=== PATIENT | female | born 1930 | race Caucasian/White ===

== ENCOUNTER 2016-12-16 14:16 | Inpatient (IN) | payer OTHER ==
[~2016-12-16] VITALS: Ht 167.6 cm; Wt 70.7 kg
--- NOTE | 2016-12-16 14:42 | EMERGENCY ROOM VISIT NOTE ---
History Report prepared by Hilario: Erick Jeffrey Under the Supervision of: Dr. Pura Norman M.D. First contact with patient: 14:30 Chief Complaint: CARDIAC ASSESSMENT Stated Complaint: SOB,NAUSEA,FLUID BUILDUP AROUND HEART,DEMETIA Nursing Triage Summary: Pt sons states patient has hx of CHF and has gained 10 pounds over the last week or so. Not eating well, c/o of abdominal pain; she appears SOB. Hx dementia. Pt denies all complaints then turns to sons and states "I don't want to be admitted to the hospital" History of Present Illness The patient is an 86 year old female who presents to the Emergency Room with complaints of constant SOB beginning today. Per family, the patient has appeared to have been experiencing shallow breathing since this morning. They note that they told her that they were going out to lunch but instead brought her to the emergency department. They report that the patient had CHF two years ago and is experiencing similar symptoms again. The patient states that she has a cough but denies any chest pain and vomiting. Source of History: patient, family Onset: today Position: chest Quality: other (shortness of breath) Timing: constant Associated Symptoms: + cough, No chest pain, No vomiting Review of Systems See HPI for pertinent positives & negatives. A total of 10 systems reviewed and were otherwise negative. Past Medical & Surgical Medical Problems: (1) CHF (congestive heart failure) Family History No pertinent family history stated. Social History Smoking Status: Never Smoker Marital Status: Housing Status: lives with family Occupation Status: retired Current/Historical Medications Scheduled Atenolol (Tenormin), 25 MG PO DAILY Dorzolamide Hcl-Timolol Maleat (Cosopt Oph), 1 DROPS OPB BID Enalapril (Vasotec), 20 MG PO DAILY Furosemide (Lasix), 40 MG PO DAILY Latanoprost (Xalatan 0.005% Oph Margaux), 1 DROPS OPB HS Allergies Coded Allergies: No Known Allergies (Unverified , 12/16/16) Physical Exam Vital Signs Date Time Temp Pulse Resp B/P (MAP) Pulse Ox O2 Delivery O2 Flow Rate FiO2 12/16/16 15:27 96 Nasal Cannula 2.0 12/16/16 15:21 83 26 141/96 90 Room Air 12/16/16 15:17 80 12/16/16 14:43 95 Room Air 12/16/16 14:42 76 25 147/106 96 Room Air 12/16/16 14:28 97 Room Air 12/16/16 14:23 36.3 Room Air Physical Exam Vital signs reviewed. General: Well-appearing female, in no significant distress. HEENT: No scleral icterus, PERRLA, neck supple. Atraumatic. Cardiovascular: Regular rate and rhythm, no extra sounds. Pulmonary: Normal work of breathing, crackles to bases left greater than right. Abdomen: Soft, nontender, nondistended, positive bowel sounds. Musculoskeletal: Atraumatic, no peripheral edema. Neurologic: Patient awake alert and oriented x 3, full strength in all 4 extremities. Cranial nerves 2 through 12 grossly intact. Follows commands but is pleasantly confused. Skin: Warm, dry, no rash Medical Decision & Procedures ER Provider Diagnostic Interpretation: Radiology results as stated below per my review and radiologist interpretation: SINGLE VIEW CHEST FINDINGS: An AP, portable, upright chest radiograph is obtained. No prior studies are available for comparison at the time of dictation. The examination is degraded by portable technique and patient rotation. The heart is enlarged and there is atherosclerotic calcification of the thoracic aorta. There is pulmonary vascular congestion and interstitial edema. There are layering pleural effusions with bibasilar consolidation. No pneumothorax is seen. The skeletal structures are osteopenic. The bony thorax is grossly intact. Degenerative change is noted throughout the thoracic spine. IMPRESSION: 1. Cardiomegaly with evidence of congestive failure and interstitial edema. 2. There are layering pleural effusions with bibasilar consolidation. This likely represents atelectasis. Correlate clinically for evidence of superimposed pneumonia. Electronically signed by: Steve Farley M.D. 12/16/2016 2:59 PM Laboratory Results Test 12/16/16 14:45 Prothrombin Time 12.4 SECONDS (9.0-12.0) Prothromb Time International Ratio 1.2 (0.9-1.1) Direct Bilirubin 0.2 mg/dl (0-0.2) Total Creatine Kinase 45 U/L (26-192) Creatine Kinase MB 1.4 ng/ml (0.5-3.6) Creatine Kinase MB Ratio 3.1 (0-3.0) Pro-B-Type Natriuretic Peptide > 51669 pg/ml (0-1800) Procalcitonin 0.35 ng/ml (0-0.5) Laboratory results per my review. Medications Administered Medications (Trade) Dose Ordered Sig/Renae Route Start Time Stop Time Status Last Admin Dose Admin Furosemide (Lasix Inj) 40 mg NOW STAT IV 12/16/16 15:42 12/16/16 15:44 DC 12/16/16 15:49 40 MG ECG Indication: SOB/dyspnea Rate (beats per minute): 84 Rhythm: sinus rhythm Findings: 1st degree AV block, LBBB, PVC, no acute ischemic change, left axis deviation ED Course 1431: Past medical records reviewed. The patient was evaluated in room C12. A complete history and physical examination was performed. 1542: Lasix Inj 40mg IV 1601: I spoke to Dr. Gao - Mary Beavers. The patient will be admitted and evaluated for further treatment. 1603: Upon reevaluation, the patient is resting comfortably. I discussed laboratory and radiographic results with her. She verbalized agreement of the treatment plan. The patient will be evaluated for further management and care. Medical Decision Differential diagnosis: Etiologies such as infections, reactive airway disease, pneumonia, pneumothorax , COPD, CHF, cardiac ischemia, pulmonary embolism, musculoskeletal, gastrointestinal, as well as others were entertained. This pt was evaluated and appeared to be in no distress. IV access was obtained and lab work was drawn. EKG reveals a LBBB with 1st degree AVB. CXR is c/w CHF. Labs reveal a markedly elevated BNP. Pt was medicated with IV lasix 40 mg. She was informed of the findings and not happy about plan for admission. Pt has significant dementia and in the presence of 2 sons and (POA), they have agreed with plan for admission. The hospitalist service was consulted for further management. Medication Reconcilliation Current Medication List: was personally reviewed by me Blood Pressure Screening Patient's blood pressure: Elevated blood pressure referred to hospitalist Consults Time Called: 1600 Consulting Physician: Dr. Gao Returned Call: 1601 I reviewed the patient's case with Nimesh Reyez. She will evaluate the patient for further management. Impression Primary Impression: Congestive heart failure (CHF) Scribe Attestation The scribe's documentation has been prepared under my direction and personally reviewed by me in its entirety. I confirm that the note above accurately reflects all work, treatment, procedures, and medical decision making performed by me. Departure Information Dispostion Being Evaluated By Hospitalist Referrals Henrietta Godwin (PCP) Forms IMPORTANT VISIT INFORMATION Patient Instructions My [facility]
[2016-12-16 14:57] LABS: BASO % 0.3 %; BASO ABS # 0.03 K/uL (0-0.2); COMPLETE YES; HEMATOCRIT 35.6 % (37-47); IG% 0.9 %; LYMPH % 19.4 %; LYMPH ABS # 2.26 K/uL (1.2-3.4); MEAN CELL VOLUME 96.2 fL (80-100); MEAN CORPUSCULAR HEMOGLOBIN 31.1 pg (25-34); MEAN CORPUSCULAR HGB CONC 32.3 g/dl (32-36); MEAN PLATELET VOLUME 10.5 fL (7.4-10.4); NEUT % 71.4 %; PLATELET COUNT 377 K/uL (130-400); WHITE BLOOD COUNT 11.62 K/uL (4.8-10.8)
--- NOTE | 2016-12-16 15:01 | DIAGNOSTIC IMAGING REPORT ---
SINGLE VIEW CHEST CLINICAL HISTORY: CHF. FINDINGS: An AP, portable, upright chest radiograph is obtained. No prior studies are available for comparison at the time of dictation. The examination is degraded by portable technique and patient rotation. The heart is enlarged and there is atherosclerotic calcification of the thoracic aorta. There is pulmonary vascular congestion and interstitial edema. There are layering pleural effusions with bibasilar consolidation. No pneumothorax is seen. The skeletal structures are osteopenic. The bony thorax is grossly intact. Degenerative change is noted throughout the thoracic spine. IMPRESSION: 1. Cardiomegaly with evidence of congestive failure and interstitial edema. 2. There are layering pleural effusions with bibasilar consolidation. This likely represents atelectasis. Correlate clinically for evidence of superimposed pneumonia. Electronically signed by: Steve Farley M.D. 12/16/2016 2:59 PM Dictated Date/Time: 12/16/2016 2:58 PM
[2016-12-16 15:05] LABS: INR 1.2 (0.9-1.1); PROTHROMBIN TIME (PATIENT) 12.4 SECONDS (9.0-12.0)
[2016-12-16 15:23] LABS: ALT/SGPT 62 U/L (12-78); AST/SGOT 42 U/L (15-37); BLOOD UREA NITROGEN 52 mg/dl (7-18); BUN/CREATININE RATIO 27.5 (10-20); CARBON DIOXIDE 21 mmol/L (21-32); CHLORIDE 108 mmol/L (98-107); GLUCOSE 140 mg/dl (70-99); MAGNESIUM 2.4 mg/dl (1.8-2.4); POTASSIUM 4.2 mmol/L (3.5-5.1); SODIUM 141 mmol/L (136-145)
[2016-12-16 15:29] LABS: ALKALINE PHOSPHATASE 109 U/L (45-117); CKMB/CK RATIO 3.1 (0-3.0)
[2016-12-16] MEDS ORDERED: FUROSEMIDE 40 MG/4 ML VIAL IV STA (15:42)
[2016-12-16] MEDS ORDERED: LATA0.5S OPB (16:37)
[2016-12-16] MEDS ORDERED: ENAL10TA88 PO (16:37)
[2016-12-16] MEDS ORDERED: FRS/40 PO (16:37)
[2016-12-16] MEDS ORDERED: DORZ2SOL20 OPB (16:37)
[2016-12-16] MEDS ORDERED: ATEN50TA8 PO (16:37)
--- NOTE | 2016-12-16 17:13 | History and Physical ---
History & Physical Date & Time of Service: Dec 16, 2016 at 16:49 Chief Complaint: Sob,Nausea,Fluid Buildup Around Heart,Demetia Primary Care Physician: Iliana Gomez M.D. History of Present Illness Source: patient, family This is a 86 year old F who follows with a primary care doctor in [place] named Dr. Alexander and on home medications of Lasix 40 mg daily, atenolol 25 mg daily (1/2 tablet of 50 mg) daily and enalapril 20 mg daily for blood pressure , and eye drops of dorzolamide-timolol and latanoprost who as per her family members at bedside ( and 3 sons) that patient has been having shortness of breath since 12/14/16 and for which patient presents to the ER on 12/16/16. On evaluation by the ED, patient had elevated BNP>91440 and CXR findings of pulmonary congestion. The ED physician ordered 40 mg of Lasix IV. Patient has EKG 84 bpm with left axis deviation and left bundle branch block in sinus rhythm with PVCs On exam by hospitalist physician, patient on nasal cannula but does not feel subjective shortness of breath. Patient cooperative on exam. Denies chest pain or palpitations or fevers at home. Denies smoking history or alcohol or recreational drugs or allergies. Family History Stent SON Social History Smoking Status: Never Smoker Marital Status: Occupational Status: retired Multi-Drug Resistant Organisms History of MDRO: No Allergies Coded Allergies: No Known Allergies (Unverified , 12/16/16) Home Medications Scheduled Atenolol (Tenormin), 25 MG PO DAILY Dorzolamide Hcl-Timolol Maleat (Cosopt Oph), 1 DROPS OPB BID Enalapril (Vasotec), 20 MG PO DAILY Furosemide (Lasix), 40 MG PO DAILY Latanoprost (Xalatan 0.005% Oph Margaux), 1 DROPS OPB HS Review of Systems Constitutional: No fever Eyes: No worsening of vision ENT: No nasal symptoms, No sore throat Respiratory: + shortness of breath (patient has shortness of breath as per patient's family), No cough, No sputum, No wheezing Cardiovascular: No chest pain, No edema Abdomen: + nausea, No pain, No vomiting, No diarrhea, No constipation Genitourinary - Female: No dysuria Neurologic: No paralysis, No numbness/tingling Psychiatric: No substance abuse Endocrine: No fatigue Hematologic / Lymphatic: No abnormal bleeding/bruising Integumentary: No rash Physical Exam Vital Signs Date Time Temp Pulse Resp B/P (MAP) Pulse Ox O2 Delivery O2 Flow Rate FiO2 12/16/16 15:27 96 Nasal Cannula 2.0 12/16/16 15:21 83 26 141/96 90 Room Air 12/16/16 15:17 80 12/16/16 14:43 95 Room Air 12/16/16 14:42 76 25 147/106 96 Room Air 12/16/16 14:28 97 Room Air 12/16/16 14:23 36.3 Room Air General Appearance: no apparent distress Head: normocephalic, atraumatic Eyes: normal inspection, PERRL, EOMI, sclerae normal ENT: normal ENT inspection, hearing grossly normal, TMs normal, pharynx normal Neck: no JVD, trachea midline Respiratory/Chest: chest non-tender, + pertinent finding (some tachypnea but breathing is not labored on nasal cannula) Cardiovascular: regular rate, rhythm, no edema, no JVD Abdomen/GI: normal bowel sounds, non tender, soft Back: normal inspection, no muscle spasm Extremities/Musculoskelatal: normal inspection, no calf tenderness, no pedal edema Neurologic/Psych: no motor/sensory deficits, alert, normal mood/affect Skin: normal color, warm/dry Diagnostics Laboratory Results Results Past 24 Hours Test 12/16/16 14:45 12/16/16 16:39 Range/Units White Blood Count 11.62 4.8-10.8 K/uL Red Blood Count 3.70 4.2-5.4 M/uL Hemoglobin 11.5 12.0-16.0 g/dL Hematocrit 35.6 37-47 % Mean Corpuscular Volume 96.2 80-100 fL Mean Corpuscular Hemoglobin 31.1 25-34 pg Mean Corpuscular Hemoglobin Concent 32.3 32-36 g/dl Platelet Count 377 130-400 K/uL Mean Platelet Volume 10.5 7.4-10.4 fL Neutrophils (%) (Auto) 71.4 % Lymphocytes (%) (Auto) 19.4 % Monocytes (%) (Auto) 8.0 % Eosinophils (%) (Auto) 0.0 % Basophils (%) (Auto) 0.3 % Neutrophils # (Auto) 8.30 1.4-6.5 K/uL Lymphocytes # (Auto) 2.26 1.2-3.4 K/uL Monocytes # (Auto) 0.93 0.11-0.59 K/uL Eosinophils # (Auto) 0.00 0-0.5 K/uL Basophils # (Auto) 0.03 0-0.2 K/uL RDW Standard Deviation 49.9 36.4-46.3 fL RDW Coefficient of Variation 14.3 11.5-14.5 % Immature Granulocyte % (Auto) 0.9 % Immature Granulocyte # (Auto) 0.10 0.00-0.02 K/uL Nucleated RBC Absolute Count (auto) 0.04 0-0 K/uL Nucleated Red Blood Cells % 0.3 % Prothrombin Time 12.4 9.0-12.0 SECONDS Prothromb Time International Ratio 1.2 0.9-1.1 Activated Partial Thromboplast Time 25.0 21.0-31.0 SECONDS Partial Thromboplastin Ratio 1.0 Sodium Level 141 136-145 mmol/L Potassium Level 4.2 3.5-5.1 mmol/L Chloride Level 108 98-107 mmol/L Carbon Dioxide Level 21 21-32 mmol/L Anion Gap 12.0 3-11 mmol/L Blood Urea Nitrogen 52 7-18 mg/dl Creatinine 1.90 0.60-1.20 mg/dl Estimated GFR () 27.6 Estimated GFR (Non- 23.8 BUN/Creatinine Ratio 27.5 10-20 Random Glucose 140 70-99 mg/dl Calcium Level 9.0 8.5-10.1 mg/dl Magnesium Level 2.4 1.8-2.4 mg/dl Total Bilirubin 0.4 0.2-1 mg/dl Direct Bilirubin 0.2 0-0.2 mg/dl Aspartate Amino Transf (AST/SGOT) 42 15-37 U/L Alanine Aminotransferase (ALT/SGPT) 62 12-78 U/L Alkaline Phosphatase 109 45-117 U/L Total Creatine Kinase 45 26-192 U/L Creatine Kinase MB 1.4 0.5-3.6 ng/ml Creatine Kinase MB Ratio 3.1 0-3.0 Pro-B-Type Natriuretic Peptide > 08571 0-1800 pg/ml Total Protein 8.0 6.4-8.2 gm/dl Albumin 3.1 3.4-5.0 gm/dl Diagnostic Radiology CXR FINDINGS: An AP, portable, upright chest radiograph is obtained. No prior studies are available for comparison at the time of dictation. The examination is degraded by portable technique and patient rotation. The heart is enlarged and there is atherosclerotic calcification of the thoracic aorta. There is pulmonary vascular congestion and interstitial edema. There are layering pleural effusions with bibasilar consolidation. No pneumothorax is seen. The skeletal structures are osteopenic. The bony thorax is grossly intact. Degenerative change is noted throughout the thoracic spine. IMPRESSION: 1. Cardiomegaly with evidence of congestive failure and interstitial edema. 2. There are layering pleural effusions with bibasilar consolidation. This likely represents atelectasis. EKG EKG 84 bpm with left axis deviation and left bundle branch block in sinus rhythm with PVCs Impression Assessment and Plan This is a 86 year old F who follows with a primary care doctor in [place] named Dr. Alexander and on home medications of Lasix 40 mg daily, atenolol 25 mg daily (1/2 tablet of 50 mg) daily and enalapril 20 mg daily for blood pressure , and eye drops of dorzolamide-timolol and latanoprost who as per her family members at bedside ( and 3 sons) that patient has been having shortness of breath since 12/14/16 and for which patient presents to the ER on 12/16/16. On evaluation by the ED, patient had elevated BNP>69295 and CXR findings of pulmonary congestion. The ED physician ordered 40 mg of Lasix IV. Patient has EKG 84 bpm with left axis deviation and left bundle branch block in sinus rhythm with PVCs CHF -pulmonary congestion on CXR, on exam, and elevated BNP >70688 -ED ordered 40 mg IV of Lasix , will continue Lasix as 40 mg IV BID -no fevers at home or documented in the ED, send procalcitonin to rule out pneumonia -transthoracic echo ordered -no chest pain, add on troponins to evaluate whether risk of myocardial infarction Hypertension medications -continue home dose atenolol -hold enalapril for now because creatinine BUN 52 with creatinine 1.9 Unclear whether this is CHRISTOPHE or CKD -denies dysuria, denies fever -send urinalysis -encourage PO hydration for now because of fluid overload in the lung genao and therefore avoid IV fluids in the setting of CHF continue home eyedrops of dorzolamide-timolol and latanoprost PT/OT ordered DVT ppx: heparin subcutaneous 5000 units q12h Disposition: full admission to telemetry, likely CHF Level of Care Telemetry Resuscitation Status FULL RESUSCITATION VTE Prophylaxis VTE Risk Assessment Done? Y/N: Yes Risk Level: Moderate Given or contraindicated: Unfractionated heparin SQ
[2016-12-16 18:00] VITALS: BP 145/93; PULSE 83; TEMP 36.5; O2SAT 98
[2016-12-16 19:00] VITALS: BP 145/93; PULSE 83; TEMP 36.5; O2SAT 98; Ht 167.6 cm; Wt 70.7 kg
[2016-12-16] MEDS ORDERED: HEPARIN SOD 5000 UNIT/0.5 ML CARP SQ SCH (21:00)
[2016-12-16 21:02] LABS: MANUAL MICROSCOPIC REQUIRED? NO; REVIEW REQ? NO; URINE APPEARANCE CLEAR (CLEAR); URINE BILIRUBIN NEG (NEG); URINE COLOR YELLOW; URINE EPITHELIAL CELL AUTO >30 /lpf (0-5); URINE NITRITE NEG (NEG); URINE SPECIFIC GRAVITY 1.018 (1.000-1.030); UROBILINOGEN NEG (NEG)
[2016-12-16] MEDS ORDERED: ASPIRIN 81 MG ECTAB PO STA (21:59)
[2016-12-16] MEDS ORDERED: HEPARIN IV LOW DOSE NO BOLUS SCH (22:04)
[2016-12-16] MEDS ORDERED: HEPARIN 25,000 UNIT/500ML D5W 500 ML IV PRN (22:15)
[2016-12-16 22:44] LABS: BUN/CREATININE RATIO 31.4 (10-20); CREATININE 1.92 mg/dl (0.60-1.20); MAGNESIUM 2.3 mg/dl (1.8-2.4); POTASSIUM 4.1 mmol/L (3.5-5.1)
[2016-12-16 22:54] LABS: THYROID STIMULATING HORMONE 1.3 uIu/ml (0.300-4.500)
[2016-12-16 23:03] VITALS: BP 150/77; PULSE 83; TEMP 36.2; O2SAT 96
[2016-12-17] VITALS (7 sets, daily range): BP systolic 114–187; BP diastolic 73–121; PULSE 78–112; TEMP 36.3–36.8; O2SAT 90–99
[2016-12-17] MEDS ORDERED: PROCHLORPERAZINE INJ 5 MG in SYRINGE 4 ML IV PRN
[2016-12-17] MEDS ORDERED: METOCLOPRAMIDE HCL INJ 5 MG/ML 2 ML VIAL IV PRN (00:45)
[2016-12-17] MEDS ORDERED: OLANZAPINE 10 MG/2.1 ML SDV IM STA (00:58)
[2016-12-17] MEDS ORDERED: LEVALBUTEROL/IPRATROPIUM NEB INH STA (00:58)
[2016-12-17] MEDS ORDERED: LEVALBUTEROL/IPRATROPIUM NEB INH PRN (01:00)
[2016-12-17] MEDS ORDERED: LEVALBUTEROL 1.25MG/0.5ML NEB INH STA (01:01)
[2016-12-17] MEDS ORDERED: IPRATROPIUM BROMIDE NEB SOLN 0.02% 2.5 ML VIAL INH STA (01:01)
[2016-12-17] MEDS ORDERED: IPRATROPIUM BROMIDE NEB SOLN 0.02% 2.5 ML VIAL INH PRN (01:15)
[2016-12-17] MEDS ORDERED: LEVALBUTEROL 1.25MG/0.5ML NEB INH PRN (01:15)
--- NOTE | 2016-12-17 01:17 | Progress Note ---
Internal Med Progress Note Date of Service: Dec 17, 2016. Provider Documentation: Made aware by RN of episodic bradycardia around 10 PM last night - CR 30s on 2 episodes 5 minutes apart. px nauseous as per RN. Decrease maintenance home beta maryjane dose for now. Will relay to AM provider. Vital Signs: Date Time Temp Pulse Resp B/P (MAP) Pulse Ox O2 Delivery O2 Flow Rate FiO2 12/17/16 07:45 Nasal Cannula 2.0 12/17/16 07:18 36.7 85 18 126/80 (95) 96 12/17/16 05:26 36.3 85 20 114/73 (87) 99 Nasal Cannula 2.0 12/17/16 04:00 Nasal Cannula 2.0 12/17/16 01:19 97 20 95 Room Air 12/17/16 00:21 112 153/99 (117) 12/17/16 00:00 Nasal Cannula 2.0 12/16/16 23:03 36.2 83 18 150/77 (101) 96 Nasal Cannula 2.0 12/16/16 20:00 Nasal Cannula 2.0 12/16/16 19:00 36.5 83 22 145/93 98 Nasal Cannula 2.0 12/16/16 18:00 36.5 83 22 145/93 (110) 98 Nasal Cannula 2.0 12/16/16 17:30 79 21 147/95 97 Nasal Cannula 2.0 12/16/16 16:51 86 26 147/95 96 Nasal Cannula 2.0 12/16/16 15:27 96 Nasal Cannula 2.0 12/16/16 15:21 83 26 141/96 90 Room Air 12/16/16 15:17 80 12/16/16 14:43 95 Room Air 12/16/16 14:42 76 25 147/106 96 Room Air 12/16/16 14:28 97 Room Air 12/16/16 14:23 36.3 Room Air Lab Results: Results Past 24 Hours Test 12/16/16 14:45 12/16/16 19:25 12/16/16 20:43 12/16/16 22:19 Range/Units White Blood Count 11.62 4.8-10.8 K/uL Red Blood Count 3.70 4.2-5.4 M/uL Hemoglobin 11.5 12.0-16.0 g/dL Hematocrit 35.6 37-47 % Mean Corpuscular Volume 96.2 80-100 fL Mean Corpuscular Hemoglobin 31.1 25-34 pg Mean Corpuscular Hemoglobin Concent 32.3 32-36 g/dl Platelet Count 377 130-400 K/uL Mean Platelet Volume 10.5 7.4-10.4 fL Neutrophils (%) (Auto) 71.4 % Lymphocytes (%) (Auto) 19.4 % Monocytes (%) (Auto) 8.0 % Eosinophils (%) (Auto) 0.0 % Basophils (%) (Auto) 0.3 % Neutrophils # (Auto) 8.30 1.4-6.5 K/uL Lymphocytes # (Auto) 2.26 1.2-3.4 K/uL Monocytes # (Auto) 0.93 0.11-0.59 K/uL Eosinophils # (Auto) 0.00 0-0.5 K/uL Basophils # (Auto) 0.03 0-0.2 K/uL RDW Standard Deviation 49.9 36.4-46.3 fL RDW Coefficient of Variation 14.3 11.5-14.5 % Immature Granulocyte % (Auto) 0.9 % Immature Granulocyte # (Auto) 0.10 0.00-0.02 K/uL Nucleated RBC Absolute Count (auto) 0.04 0-0 K/uL Nucleated Red Blood Cells % 0.3 % Prothrombin Time 12.4 9.0-12.0 SECONDS Prothromb Time International Ratio 1.2 0.9-1.1 Activated Partial Thromboplast Time 25.0 21.0-31.0 SECONDS Partial Thromboplastin Ratio 1.0 Sodium Level 141 142 136-145 mmol/L Potassium Level 4.2 4.1 3.5-5.1 mmol/L Chloride Level 108 110 98-107 mmol/L Carbon Dioxide Level 21 21 21-32 mmol/L Anion Gap 12.0 11.0 3-11 mmol/L Blood Urea Nitrogen 52 60 7-18 mg/dl Creatinine 1.90 1.92 0.60-1.20 mg/dl Estimated GFR () 27.6 27.2 Estimated GFR (Non- 23.8 23.5 BUN/Creatinine Ratio 27.5 31.4 10-20 Random Glucose 140 137 70-99 mg/dl Calcium Level 9.0 9.0 8.5-10.1 mg/dl Magnesium Level 2.4 2.3 1.8-2.4 mg/dl Total Bilirubin 0.4 0.2-1 mg/dl Direct Bilirubin 0.2 0-0.2 mg/dl Aspartate Amino Transf (AST/SGOT) 42 15-37 U/L Alanine Aminotransferase (ALT/SGPT) 62 12-78 U/L Alkaline Phosphatase 109 45-117 U/L Total Creatine Kinase 45 26-192 U/L Creatine Kinase MB 1.4 0.5-3.6 ng/ml Creatine Kinase MB Ratio 3.1 0-3.0 Troponin I 0.276 0.308 0-0.045 ng/ml Pro-B-Type Natriuretic Peptide > 28128 0-1800 pg/ml Total Protein 8.0 6.4-8.2 gm/dl Albumin 3.1 3.4-5.0 gm/dl Procalcitonin 0.35 0-0.5 ng/ml Urine Color YELLOW Urine Appearance CLEAR CLEAR Urine pH 5.0 4.5-7.5 Urine Specific [place] 1.018 1.000-1.030 Urine Protein TRACE NEG Urine Glucose (UA) NEG NEG Urine Ketones NEG NEG Urine Occult Blood NEG NEG Urine Nitrite NEG NEG Urine Bilirubin NEG NEG Urine Urobilinogen NEG NEG Urine Leukocyte Esterase SMALL NEG Urine WBC (Auto) 1-5 0-5 /hpf Urine RBC (Auto) 0-4 0-4 /hpf Urine Hyaline Casts (Auto) 1-5 0-5 /lpf Urine Epithelial Cells (Auto) >30 0-5 /lpf Urine Bacteria (Auto) NEG NEG Est Creatinine Clear Calc Drug Dose 22.5 ml/min Lipase 369 73-393 U/L Thyroid Stimulating Hormone (TSH) 1.300 0.300-4.500 uIu/ml Test 12/17/16 03:47 12/17/16 04:40 Range/Units White Blood Count 11.19 4.8-10.8 K/uL Red Blood Count 3.45 4.2-5.4 M/uL Hemoglobin 10.5 12.0-16.0 g/dL Hematocrit 32.9 37-47 % Mean Corpuscular Volume 95.4 80-100 fL Mean Corpuscular Hemoglobin 30.4 25-34 pg Mean Corpuscular Hemoglobin Concent 31.9 32-36 g/dl Platelet Count 311 130-400 K/uL Mean Platelet Volume 10.2 7.4-10.4 fL Neutrophils (%) (Auto) 77.0 % Lymphocytes (%) (Auto) 14.6 % Monocytes (%) (Auto) 7.1 % Eosinophils (%) (Auto) 0.0 % Basophils (%) (Auto) 0.3 % Neutrophils # (Auto) 8.62 1.4-6.5 K/uL Lymphocytes # (Auto) 1.63 1.2-3.4 K/uL Monocytes # (Auto) 0.80 0.11-0.59 K/uL Eosinophils # (Auto) 0.00 0-0.5 K/uL Basophils # (Auto) 0.03 0-0.2 K/uL RDW Standard Deviation 49.8 36.4-46.3 fL RDW Coefficient of Variation 14.6 11.5-14.5 % Immature Granulocyte % (Auto) 1.0 % Immature Granulocyte # (Auto) 0.11 0.00-0.02 K/uL Nucleated RBC Absolute Count (auto) 0.06 0-0 K/uL Nucleated Red Blood Cells % 0.5 % Activated Partial Thromboplast Time 25.7 27.6 21.0-31.0 SECONDS Partial Thromboplastin Ratio 1.0 1.1 Sodium Level 146 136-145 mmol/L Potassium Level 3.7 3.5-5.1 mmol/L Chloride Level 111 98-107 mmol/L Carbon Dioxide Level 23 21-32 mmol/L Anion Gap 12.0 3-11 mmol/L Blood Urea Nitrogen 60 7-18 mg/dl Creatinine 2.09 0.60-1.20 mg/dl Est Creatinine Clear Calc Drug Dose 20.7 ml/min Estimated GFR () 24.6 Estimated GFR (Non- 21.2 BUN/Creatinine Ratio 28.7 10-20 Random Glucose 143 70-99 mg/dl Calcium Level 8.6 8.5-10.1 mg/dl Magnesium Level 2.4 1.8-2.4 mg/dl Total Bilirubin 0.5 0.2-1 mg/dl Aspartate Amino Transf (AST/SGOT) 45 15-37 U/L Alanine Aminotransferase (ALT/SGPT) 61 12-78 U/L Alkaline Phosphatase 105 45-117 U/L Troponin I 0.270 0-0.045 ng/ml Total Protein 7.2 6.4-8.2 gm/dl Albumin 2.9 3.4-5.0 gm/dl Globulin 4.3 2.5-4.0 gm/dl Albumin/Globulin Ratio 0.7 0.9-2 Triglycerides Level 172 0-150 mg/dl Cholesterol Level 157 0-200 mg/dl HDL Cholesterol 36 mg/dl LDL Cholesterol, Calculated 87 mg/dl VLDL Cholesterol, Calculated 34 mg/dl Cholesterol/HDL Ratio 4.4
[2016-12-17 03:58] LABS: BASO % 0.3 %; BASO ABS # 0.03 K/uL (0-0.2); COMPLETE YES; HEMATOCRIT 32.9 % (37-47); LYMPH % 14.6 %; LYMPH ABS # 1.63 K/uL (1.2-3.4); MEAN CELL VOLUME 95.4 fL (80-100); MEAN CORPUSCULAR HEMOGLOBIN 30.4 pg (25-34); MEAN CORPUSCULAR HGB CONC 31.9 g/dl (32-36); MEAN PLATELET VOLUME 10.2 fL (7.4-10.4); MONO % 7.1 %; PLATELET COUNT 311 K/uL (130-400); RED BLOOD COUNT 3.45 M/uL (4.2-5.4); WHITE BLOOD COUNT 11.19 K/uL (4.8-10.8)
[2016-12-17 04:36] LABS: BUN/CREATININE RATIO 28.7 (10-20); CALCIUM 8.6 mg/dl (8.5-10.1); CREATININE 2.09 mg/dl (0.60-1.20); MAGNESIUM 2.4 mg/dl (1.8-2.4); POTASSIUM 3.7 mmol/L (3.5-5.1)
[2016-12-17 04:42] LABS: ALB/GLOB RATIO 0.7 (0.9-2); CHOLESTEROL/HDL RATIO 4.4
[2016-12-17 05:06] LABS: PARTIAL THROMBOPLASTIN RATIO 1.1
[2016-12-17] MEDS ORDERED: HEPARIN IV BOLUS 4,500 UNIT in SYRINGE 0 ML IV ONE (05:30)
--- NOTE | 2016-12-17 06:44 | DIAGNOSTIC IMAGING REPORT ---
CHEST ONE VIEW PORTABLE HISTORY: 86 years-old Female sob acute shortness of breath with congestive heart failure COMPARISON: Chest radiograph 12/16/2016 TECHNIQUE: Portable upright AP view of the chest FINDINGS: Cardiac silhouette is moderately enlarged, unchanged. Atherosclerosis of the aorta. There is no pneumothorax. Pulmonary vascular congestion with background interstitial opacities, small bilateral pleural effusions with bibasilar consolidation appears mildly improved from prior. There is slightly improved aeration of the lung bases. The bones are grossly intact. IMPRESSION: 1. Cardiomegaly with mildly improved pulmonary edema pattern. 2. Mildly improved aeration of the lung bases with persistent bibasilar consolidation suggesting atelectasis or less likely pneumonia. The above report was generated using voice recognition software. It may contain grammatical, syntax or spelling errors. Electronically signed by: Panfilo Jacobson M.D. 12/17/2016 6:42 AM Dictated Date/Time: 12/17/2016 6:40 AM
[2016-12-17] MEDS: LATANOPROST 0.005% OP SOLN 2.5 ML BTL OP SCH (07:56)
[2016-12-17] MEDS: DORZOLAMIDE/TIMOLOL 22.3/6.8MG/ML 10 ML BTL OP SCH (07:56)
--- NOTE | 2016-12-17 08:02 | ECHOCARDIOGRAM REPORT ---
*NOTICE TO RECEIVING CONSTITUTION PARTY AGENCY This information is strictly Confidential and protected under [place] law. [place] law prohibits you from making any further disclosure of this information unless further disclosure is expressly permitted by the written consent of the person to whom it pertains or is authorized by law. A general authorization for the release of medical or other information is not sufficient for this purpose. Hospital accepts no responsibility if the information is made available to any other person, INCLUDING THE PATIENT. Interpretation Summary * Name: SALVADOR VILLALTA Study Date: 12/17/2016 06:19 AM BP: 114/73 mmHg * Patient Location: [facility]\S\[id number]\S\2 HR: 85 * : 1930 (M/d/yyyy) Gender: Female Height: 65 in * Age: 86 yrs Ethnicity: [place] Weight: 164 lb * Ordering Physician: Christopher Goyal * Performed By: Nena Malone RDCS * * Reason For Study: CHF * BSA: 1.8 m2 * -- Conclusions -- * The left ventricle is moderately dilated. * There is severe concentric left ventricular hypertrophy. * Septal motion is consistent with conduction abnormality. * There is severe global hypokinesis of the left ventricle. * There is inferior wall akinesis. * Ejection Fraction = <15%. * The left atrium is mildly dilated. * There is moderate to severe mitral regurgitation. Procedure Details * A complete two-dimensional transthoracic echocardiogram was performed (2D, M-mode, Doppler and color flow Doppler). * The study was technically difficult. * There were technical limitations due to patient being combative and inability to cooperate. Left Ventricle * The left ventricle is moderately dilated. * There is severe concentric left ventricular hypertrophy. * Ejection Fraction = <15%. * Left ventricular systolic function is severely reduced. * Septal motion is consistent with conduction abnormality. * There is severe global hypokinesis of the left ventricle. * There is inferior wall akinesis. Right Ventricle * The right ventricle is normal in size and function. Atria * The left atrium is mildly dilated. * Right atrial size is normal. * No ASD detected; PFO is not assessed. Mitral Valve * The mitral valve lealfets are moderately thickened * There is no mitral valve stenosis. * There is moderate to severe mitral regurgitation. Tricuspid Valve * The tricuspid valve anatomy is normal. * There is no tricuspid stenosis. * There is trace tricuspid regurgitation. Aortic Valve * The aortic valve is trileaflet. * Aortic valve sclerosis moderate, without significant aortic valvular stenosis. * No hemodynamically significant valvular aortic stenosis. * Trace aortic regurgitation. Pulmonic Valve * The pulmonic valve is not well visualized. Great Vessels * The aortic root is normal size. Pericardium/Pleural * There is no pericardial effusion. Great Vessels * The inferior vena cava is mildly dilated. Left Ventricular Diastolic Function * Diastolic dysfunction, Grade III, consistent with marked congestive heart failure. MMode 2D Measurements and Calculations IVSd 1.9 cm IVSs 1.7 cm LVIDd 6.0 cm LVIDs 5.3 cm LVPWd 1.0 cm LVPWs 1.4 cm IVS/LVPW 1.8 FS 10.8 % EDV(Teich) 177.6 ml ESV(Teich) 136.5 ml EF(Teich) 23.1 % EDV(cubed) 212.2 ml ESV(cubed) 150.5 ml EF(cubed) 29.0 % % IVS thick -9.50 % % LVPW thick 30.3 % LV mass(C)d 417.2 grams LV mass(C)dI 229.4 grams/m\S\2 LV mass(C)s 372.3 grams LV mass(C)sI 204.8 grams/m\S\2 SV(Teich) 41.0 ml SI(Teich) 22.6 ml/m\S\2 SV(cubed) 61.6 ml SI(cubed) 33.9 ml/m\S\2 EPSS 2.1 cm ACS 0.45 cm LA dimension 4.6 cm asc Aorta Diam 4.1 cm LVOT diam 1.9 cm LVOT area 3.0 cm\S\2 LVAd ap4 45.3 cm\S\2 LVLd ap4 9.5 cm EDV(MOD-sp4) 179.3 ml EDV(sp4-el) 184.2 ml LVAs ap4 39.4 cm\S\2 LVLs ap4 8.9 cm ESV(MOD-sp4) 144.2 ml ESV(sp4-el) 147.5 ml EF(MOD-sp4) 19.6 % EF(sp4-el) 19.9 % LVAd ap2 48.3 cm\S\2 LVLd ap2 9.6 cm EDV(MOD-sp2) 196.9 ml EDV(sp2-el) 205.2 ml LVAs ap2 41.4 cm\S\2 LVLs ap2 9.8 cm ESV(MOD-sp2) 151.3 ml ESV(sp2-el) 148.6 ml EF(MOD-sp2) 23.1 % EF(sp2-el) 27.6 % LVLd %diff 1.9 % EDV(MOD-bp) 191.6 ml LVLs %diff 8.7 % ESV(MOD-bp) 153.7 ml EF(MOD-bp) 19.8 % SV(MOD-sp4) 35.1 ml SI(MOD-sp4) 19.3 ml/m\S\2 SV(MOD-sp2) 45.6 ml SI(MOD-sp2) 25.1 ml/m\S\2 SV(MOD-bp) 37.9 ml SI(MOD-bp) 20.8 ml/m\S\2 SV(sp4-el) 36.7 ml SI(sp4-el) 20.2 ml/m\S\2 SV(sp2-el) 56.6 ml SI(sp2-el) 31.2 ml/m\S\2 Doppler Measurements and Calculations MV E max yoko 131.6 cm/sec MV dec time 0.13 sec Ao V2 max 113.6 cm/sec Ao max PG 5.2 mmHg Ao max PG (full) 3.6 mmHg DYANA(V,A) 1.6 cm\S\2 DYANA(V,D) 1.6 cm\S\2 AI max yoko 400.1 cm/sec AI max PG 64.0 mmHg AI dec slope 241.9 cm/sec\S\2 AI P1/2t 484.4 msec LV V1 max PG 1.6 mmHg LV V1 max 62.3 cm/sec MR max yoko 406.0 cm/sec MR max PG 66.0 mmHg PA V2 max 79.3 cm/sec PA max PG 2.5 mmHg PI end-d yoko 92.3 cm/sec
[2016-12-17] MEDS: ASPIRIN 81 MG ECTAB PO SCH (08:16)
[2016-12-17] MEDS ORDERED: FUROSEMIDE INJ 40 MG in SYRINGE 0 ML IV SCH (09:00)
[2016-12-17] MEDS ORDERED: NURSING VERBAL MED ORDER ONE (10:15)
[2016-12-17] MEDS ORDERED: POTASSIUM CHLORIDE 10 MEQ TABCR PO ONE (10:25)
[2016-12-17] MEDS ORDERED: FUROSEMIDE INJ 40 MG in SYRINGE 0 ML IV ONE (10:45)
--- NOTE | 2016-12-17 11:05 | CARDIOLOGY CONSULTATION ---
DATE OF CONSULTATION: 12/17/2016 CONSULTATION REQUESTED BY: Dr. Goyal. REASON FOR CONSULTATION: Volume overload. HISTORY OF PRESENT ILLNESS: Mrs. Alexander is a very pleasant yet severely demented 86-year-old woman who presented to [facility] [address] on 12/16/2016 with a report of shortness of breath as per the family. The patient is severely demented and the family actually told her that she was going out to lunch. Upon presentation to the Emergency Room, she was found to be volume overloaded. She was given a dose of IV Lasix and admitted to telemetry. Currently, no family is available at the bedside. I did try to contact her and son both by phone, neither call was picked up. Currently, the patient states that she feels weak, but is unable to provide any further detail. She is unsure why she is here. I did call and speak to her primary care physician, Dr. Iliana Gomez through [facility] and she was able to provide a great deal of insight and the patient's medical history. She states that she does carry a history of severe vascular dementia with short term memory of approximately 30 seconds. She also carries a history of severe cardiomyopathy, EF approximately 20% with severe mitral regurgitation, which the family declined further workup of for several years now. She also carries a history of chronic left bundle branch block. She states that she has chronic complaints of nausea, but usually does not complain of dyspnea. PAST SURGICAL HISTORY: Unknown. MEDICAL ILLNESSES: 1. Severe cardiomyopathy, EF approximately 20%. 2. Severe mitral regurgitation. 3. Severe vascular dementia. 4. Chronic kidney disease. Creatinine ranging between 1.5 and 2.2. 5. Chronic left bundle branch block. FAMILY HISTORY: Noncontributory. SOCIAL HISTORY: Denies any alcohol, tobacco or recreational drug use. She is . She lives at home with her . Again, she has severe dementia. REVIEW OF SYSTEMS: Unobtainable given the patient's mental status. ALLERGIES: No known drug allergies. MEDICATIONS AN OUTPATIENT: 1. Atenolol 25 mg daily. 2. Enalapril 20 mg daily. 3. Lasix 40 mg daily. 4. Eyedrops. PHYSICAL EXAMINATION: VITALS: Temperature 36.7, pulse 85, respiratory rate 12, blood pressure 126/80, and saturating 96% on 2 liters nasal cannula. GENERAL: Awake, alert, and oriented to self only, out of bed and seated in a wheelchair when about to begin physical therapy evaluation. No acute distress. HEENT: Normocephalic and atraumatic. Pupils equal, round, and reactive to light and accommodation. Extraocular muscles intact. Anicteric sclerae. Moist mucous membranes. NECK: No JVD and no bruit. CARDIOVASCULAR: Regular. Positive S4. Normal S1 and S2. No S3. A harsh 4/6 holosystolic ejection murmur greatest at the left sternal border, midclavicular line with radiation to the left axilla. No rubs. PULMONARY: Bibasilar crackles. Otherwise clear. No rhonchi or wheezing. ABDOMEN: Bowel sounds x4. Soft. No rebound, guarding, or tenderness. No organomegaly. EXTREMITIES: No clubbing, cyanosis or edema. +2 pedal pulses bilaterally. SKIN: Warm and dry. TEST RESULTS: A 12-lead EKG performed in the Emergency Department independently reviewed at this time shows sinus rhythm at 84 beats per minute with occasional PVCs and underlying left bundle branch block pattern. Inverted T waves in the lateral leads. No previous studies available for comparison. A 2D echocardiogram performed today was read as mildly dilated LV chamber with severe concentric left ventricular hypertrophy. Septal motion is consistent with conduction abnormality. Severe global hypokinesis of the left ventricular ejection fraction with akinesis of the inferior wall. EF less than 15%. Moderate to severe mitral regurgitation. Mildly dilated left atrium. LABORATORY STUDIES OF SIGNIFICANCE: Sodium 146, BUN 60, and creatinine of 2.1. IMPRESSION: 1. Longstanding cardiomyopathy, unclear etiology. Family deferring ischemic workup. 2. Severe vascular dementia. 3. Chronic renal failure. 4. Chronic left bundle branch block. RECOMMENDATIONS: It was my pleasure to see Mrs. Alexander in consultation today. Given the fact that the patient has severe underlying dementia and a longstanding history of cardiomyopathy, I believe the most prudent course of action at this point will be for diuresis and medical optimization. So given her renal function, I will increase her Lasix to 80 mg b.i.d. and her electrolytes will be followed closely. Her potassium will also be supplemented at this time. Based on her response to diuresis, we will also likely optimize her beta maryjane to evidence based beta maryjane, most likely Toprol-XL. Her enalapril has been held given her renal function and I agree with this and we will see how she responds to treatment.
[2016-12-17 11:45] LABS: BUN/CREATININE RATIO 31.1 (10-20); CALCIUM 8.8 mg/dl (8.5-10.1); CREATININE 2.13 mg/dl (0.60-1.20); POTASSIUM 3.9 mmol/L (3.5-5.1)
[2016-12-17 11:53] LABS: ALB/GLOB RATIO 0.7 (0.9-2)
--- NOTE | 2016-12-17 14:08 | Palliative Care Consultation ---
Consultation Date of Consultation: Dec 17, 2016. Requesting Physician: Dr. Haro Attending Physician: Dr. Goyal Reason for Consultation: Goals of care History of Present Illness This 86 year old female patient with PMH severe CHF, advanced vascular dementia , and others listed below, presented to the hospital yesterday with c/o shortness of breath and at least 10lb weight gain. On evaluation in the ED, patient had elevated BNP >90662, CXR showed pulmonary congestion. The ED physician ordered 40 mg of Lasix IV. EKG showed 84 bpm with left axis deviation and left bundle branch block in sinus rhythm with PVCs per report. Cardiology consulted, echocardiogram performed. On echo, EF <15%, severe global hypokinesis of LV, inferior wall akinesis, moderate-severe mitral regurgitation. Show is now on higher dose of Lasix- 80mg IV BID, was taking 40mg PO at home. She still has SOB even at rest. There has been some discussion of code status and goals of care among family, palliative care consulted to assist and be extra layer of care. I met with the patient and her family ( Ayden, two sons Ayden and Mike, daughter Erin) in room 289-[address] Rock. I did see the patient when she was alone earlier in the day. At that time she was oriented to person, place and somewhat event but has a memory of about 30 seconds. She did however tell me that she wanted to go home and does not want to be in the hospital. During family meeting, we recapped patient's medical problems including her severe CHF and her advanced dementia. Family provided some insight into patient' s life-- she normally is able to walk with walker (limited distance), still goes out and does things with her , attends grandchildren's sporting events, has good quality of life. For the last week prior to arrival she was having increased SOB, weakness, and had weight gain of at least 10lbs when she was weighed by her son. was weighing patient frequently, but forgot for the last month or so. We discussed goals of care and specifically discussed code status. After discussion, family stated that patient should be a DNR/level 5. They know patient wants to be at home, regardless of whether or not rehab is recommended. I talked about hospice-- patient has had it in the past but was discharged due to improvement. Depending on patient's course throughout hospitalization, family may be agreeable to hospice upon discharge. See plan below. Past Medical/Surgical History Medical History: Vascular dementia CHF, severe. EF <15% Valvular dysfunction CKD, baseline creatinine 1.5-2.2 Social History Smoking Status: Never Smoker History of Alcohol Use: No Marital Status: Occupation Status: retired Review of Systems Constitutional: + weakness, + fatigue ENT: No trouble swallowing Respiratory: + shortness of breath, + dyspnea on exertion, No cough Cardiac: + edema, No chest pain Abdomen: No pain, No nausea, No vomiting Female : + problem reported (reports feeling like she has to pee, but has Landa[place] in place) Neurologic: + memory loss (as reported by family and PMH) Psychiatric: No depression symptoms, No anxiety Allergies Coded Allergies: No Known Allergies (Unverified , 12/16/16) Medications Current Inpatient Medications Medications (Trade) Dose Ordered Sig/Renae Route Start Time Stop Time Status Last Admin Dose Admin Dorzolamide/ Timolol (Cosopt Op Soln) 1 drops DAILY OP 12/17/16 09:00 01/16/17 08:59 12/17/16 07:56 1 DROPS Latanoprost (Xalatan Oph Soln) 1 drops QAM OP 12/17/16 09:00 01/16/17 08:59 12/17/16 07:56 1 DROPS Aspirin (Ecotrin Tab) 81 mg QAM PO 12/17/16 09:00 01/16/17 08:59 12/17/16 08:16 81 MG Prochlorperazine Edisylate 5 mg/ Syringe 5 ml @ 5 mls/min Q6H PRN IV 12/17/16 00:00 01/16/17 00:00 12/17/16 00:06 5 MLS/MIN Metoclopramide HCl (Reglan Inj) 10 mg Q6H PRN IV 12/17/16 00:45 01/16/17 00:44 Ipratropium Lee (Atrovent 0.02% 0.5MG/2.5ML Neb) 0.5 mg Q4H PRN INH 12/17/16 01:15 01/16/17 01:14 Levalbuterol (Xopenex 1.25MG/ 0.5ML Neb) 1.25 mg Q4H PRN INH 12/17/16 01:15 01/16/17 01:14 Atenolol (Tenormin Tab) 12.5 mg QAM PO 12/17/16 09:00 01/16/17 08:59 12/17/16 07:56 12.5 MG Furosemide 80 mg/ Syringe 8 ml @ 4 mls/min BID17 IV 12/17/16 17:00 01/16/17 16:59 Potassium Chloride (Klor-Con M10) 40 meq BID17 PO 12/17/16 17:00 01/16/17 16:59 Physical Exam Date Time Temp Pulse Resp B/P (MAP) Pulse Ox O2 Delivery O2 Flow Rate FiO2 12/17/16 12:00 Nasal Cannula 2.0 12/17/16 09:26 86 99 12/17/16 07:45 Nasal Cannula 2.0 12/17/16 07:18 36.7 85 18 126/80 (95) 96 12/17/16 05:26 36.3 85 20 114/73 (87) 99 Nasal Cannula 2.0 12/17/16 04:00 Nasal Cannula 2.0 12/17/16 01:19 97 20 95 Room Air 12/17/16 00:21 112 153/99 (117) 12/17/16 00:00 Nasal Cannula 2.0 12/16/16 23:03 36.2 83 18 150/77 (101) 96 Nasal Cannula 2.0 12/16/16 20:00 Nasal Cannula 2.0 12/16/16 19:00 36.5 83 22 145/93 98 Nasal Cannula 2.0 12/16/16 18:00 36.5 83 22 145/93 (110) 98 Nasal Cannula 2.0 12/16/16 17:30 79 21 147/95 97 Nasal Cannula 2.0 12/16/16 16:51 86 26 147/95 96 Nasal Cannula 2.0 12/16/16 15:27 96 Nasal Cannula 2.0 12/16/16 15:21 83 26 141/96 90 Room Air 12/16/16 15:17 80 12/16/16 14:43 95 Room Air 12/16/16 14:42 76 25 147/106 96 Room Air 12/16/16 14:28 97 Room Air 11/5/17 14:23 36.3 Room Air General Appearance: no apparent distress ENT: hearing grossly normal Neck: supple, no JVD Respiratory: no respiratory distress, + accessory muscle use, + crackles (few fine in bilateral bases), + pertinent finding (does appear mildly SOB just at rest) Cardiovascular: regular rate, rhythm, + systolic murmur, + normal peripheral pulses, + pertinent finding (BLE edema) Abdomen: normal bowel sounds, non tender, soft Neurologic/Psychiatric: alert, normal mood/affect, + pertinent finding ( forgetful, short-term memory of about 30 seconds) Skin: normal color Laboratory Results Last 24 Hours Test 12/16/16 14:45 12/16/16 19:25 12/16/16 20:43 12/16/16 22:19 White Blood Count 11.62 K/uL Red Blood Count 3.70 M/uL Hemoglobin 11.5 g/dL Hematocrit 35.6 % Mean Corpuscular Volume 96.2 fL Mean Corpuscular Hemoglobin 31.1 pg Mean Corpuscular Hemoglobin Concent 32.3 g/dl Platelet Count 377 K/uL Mean Platelet Volume 10.5 fL Neutrophils (%) (Auto) 71.4 % Lymphocytes (%) (Auto) 19.4 % Monocytes (%) (Auto) 8.0 % Eosinophils (%) (Auto) 0.0 % Basophils (%) (Auto) 0.3 % Neutrophils # (Auto) 8.30 K/uL Lymphocytes # (Auto) 2.26 K/uL Monocytes # (Auto) 0.93 K/uL Eosinophils # (Auto) 0.00 K/uL Basophils # (Auto) 0.03 K/uL RDW Standard Deviation 49.9 fL RDW Coefficient of Variation 14.3 % Immature Granulocyte % (Auto) 0.9 % Immature Granulocyte # (Auto) 0.10 K/uL Nucleated RBC Absolute Count (auto) 0.04 K/uL Nucleated Red Blood Cells % 0.3 % Prothrombin Time 12.4 SECONDS Prothromb Time International Ratio 1.2 Activated Partial Thromboplast Time 25.0 SECONDS Partial Thromboplastin Ratio 1.0 Sodium Level 141 mmol/L 142 mmol/L Potassium Level 4.2 mmol/L 4.1 mmol/L Chloride Level 108 mmol/L 110 mmol/L Carbon Dioxide Level 21 mmol/L 21 mmol/L Anion Gap 12.0 mmol/L 11.0 mmol/L Blood Urea Nitrogen 52 mg/dl 60 mg/dl Creatinine 1.90 mg/dl 1.92 mg/dl Estimated GFR () 27.6 27.2 Estimated GFR (Non- 23.8 23.5 BUN/Creatinine Ratio 27.5 31.4 Random Glucose 140 mg/dl 137 mg/dl Calcium Level 9.0 mg/dl 9.0 mg/dl Magnesium Level 2.4 mg/dl 2.3 mg/dl Total Bilirubin 0.4 mg/dl Direct Bilirubin 0.2 mg/dl Aspartate Amino Transf (AST/SGOT) 42 U/L Alanine Aminotransferase (ALT/SGPT) 62 U/L Alkaline Phosphatase 109 U/L Total Creatine Kinase 45 U/L Creatine Kinase MB 1.4 ng/ml Creatine Kinase MB Ratio 3.1 Troponin I 0.276 ng/ml 0.308 ng/ml Pro-B-Type Natriuretic Peptide > 51132 pg/ml Total Protein 8.0 gm/dl Albumin 3.1 gm/dl Procalcitonin 0.35 ng/ml Urine Color YELLOW Urine Appearance CLEAR Urine pH 5.0 Urine Specific Warren 1.018 Urine Protein TRACE Urine Glucose (UA) NEG Urine Ketones NEG Urine Occult Blood NEG Urine Nitrite NEG Urine Bilirubin NEG Urine Urobilinogen NEG Urine Leukocyte Esterase SMALL Urine WBC (Auto) 1-5 /hpf Urine RBC (Auto) 0-4 /hpf Urine Hyaline Casts (Auto) 1-5 /lpf Urine Epithelial Cells (Auto) >30 /lpf Urine Bacteria (Auto) NEG Est Creatinine Clear Calc Drug Dose 22.5 ml/min Lipase 369 U/L Thyroid Stimulating Hormone (TSH) 1.300 uIu/ml Test 12/17/16 03:47 12/17/16 04:40 12/17/16 11:12 White Blood Count 11.19 K/uL Red Blood Count 3.45 M/uL Hemoglobin 10.5 g/dL Hematocrit 32.9 % Mean Corpuscular Volume 95.4 fL Mean Corpuscular Hemoglobin 30.4 pg Mean Corpuscular Hemoglobin Concent 31.9 g/dl Platelet Count 311 K/uL Mean Platelet Volume 10.2 fL Neutrophils (%) (Auto) 77.0 % Lymphocytes (%) (Auto) 14.6 % Monocytes (%) (Auto) 7.1 % Eosinophils (%) (Auto) 0.0 % Basophils (%) (Auto) 0.3 % Neutrophils # (Auto) 8.62 K/uL Lymphocytes # (Auto) 1.63 K/uL Monocytes # (Auto) 0.80 K/uL Eosinophils # (Auto) 0.00 K/uL Basophils # (Auto) 0.03 K/uL RDW Standard Deviation 49.8 fL RDW Coefficient of Variation 14.6 % Immature Granulocyte % (Auto) 1.0 % Immature Granulocyte # (Auto) 0.11 K/uL Nucleated RBC Absolute Count (auto) 0.06 K/uL Nucleated Red Blood Cells % 0.5 % Activated Partial Thromboplast Time 25.7 SECONDS 27.6 SECONDS Partial Thromboplastin Ratio 1.0 1.1 Sodium Level 146 mmol/L 145 mmol/L Potassium Level 3.7 mmol/L 3.9 mmol/L Chloride Level 111 mmol/L 111 mmol/L Carbon Dioxide Level 23 mmol/L 23 mmol/L Anion Gap 12.0 mmol/L 10.0 mmol/L Blood Urea Nitrogen 60 mg/dl 66 mg/dl Creatinine 2.09 mg/dl 2.13 mg/dl Est Creatinine Clear Calc Drug Dose 20.7 ml/min 20.3 ml/min Estimated GFR () 24.6 24.0 Estimated GFR (Non- 21.2 20.7 BUN/Creatinine Ratio 28.7 31.1 Random Glucose 143 mg/dl 144 mg/dl Calcium Level 8.6 mg/dl 8.8 mg/dl Magnesium Level 2.4 mg/dl Total Bilirubin 0.5 mg/dl 0.4 mg/dl Aspartate Amino Transf (AST/SGOT) 45 U/L 37 U/L Alanine Aminotransferase (ALT/SGPT) 61 U/L 58 U/L Alkaline Phosphatase 105 U/L 112 U/L Troponin I 0.270 ng/ml 0.401 ng/ml Total Protein 7.2 gm/dl 7.5 gm/dl Albumin 2.9 gm/dl 3.1 gm/dl Globulin 4.3 gm/dl 4.4 gm/dl Albumin/Globulin Ratio 0.7 0.7 Triglycerides Level 172 mg/dl Cholesterol Level 157 mg/dl HDL Cholesterol 36 mg/dl LDL Cholesterol, Calculated 87 mg/dl VLDL Cholesterol, Calculated 34 mg/dl Cholesterol/HDL Ratio 4.4 Assessment & Plan Palliative Performance Scale: 40 % Problem list: SOB/PRIEST CHF exacerbation, EF <15% on echocardiogram, moderate to severe mitral regurg, severe global hypokinesis of LV, severe concentric LVH, among other findings. Elevated troponin Alzheimer's, advanced. Has about 30 second short-term memory. Hx CKD, creatinine currently 2.13. According to record, baseline is about 1.5- 2.2. Goals of care (Z51.5) Palliative care recs: discussed with patient, patient's family (, two sons, daughter), Dr. Rock, and Dr. Goyal. -After lengthy discussion, family members present were all in agreement that patient should be a DO NOT RESUSCITATE. I explained this at length. Family seemed to be under the impression that DNR meant "do not treat." I went over extensively that "do not resuscitate" means that if the patient's heart stops or she stops breathing, we will not do any resuscitative efforts including chest compressions, intubation, shocking, and would allow natural . All family said that they would not want to put the patient through any harmful procedures. -We discussed the severity of patient's heart condition stacked on top of her advanced dementia, kidney disease, and advanced age. They understand that the goal of therapy at this point is comfort and trying to keep symptoms (SOB) at bay, but we cannot fix the underlying problem. -Living will states that in end-stage medical condition or permanent unconsciousness, patient does not want any life-prolonging measures. Family is all aware of this. -For now, family still wants to continue all current medical management while she is in hospital. Including diuresis, medication changes, lab work, etc. They do not want to transition to "comfort measures only" at this time. -We did discuss intermediate goals when patient leaves hospital. Patient expressed to me, and so did the family, that she would most certainly want to go home and would not want to go to SNF for rehab. -We discussed reinstating hospice care when patient goes home, as hospice would keep her comfortable and out of the hospital. The family is open to that idea and I will continue to discuss this with them throughout hospitalization. Of note, the patient had hospice in the past and family understands their purpose. -Further goals of care and discharge planning to be determined depending on patient's course. I will be more than happy to continue to follow this nice patient and her family. Thank you kindly for this consult and allowing me to participate in patient's care.
--- NOTE | 2016-12-17 15:05 | Progress Note ---
Internal Med Progress Note Date of Service: Dec 17, 2016. Provider Documentation: SUBJECTIVE: patient at bedside cooperative on exam. denies pain of chest or abdomen. tachypnea on nasal cannula. attending hospitalist physician also discussing with patient, her , her 3 sons and 1 daughter about health care course to date OBJECTIVE: Exam: General- no acute distress Eyes- EOMI ENT- dry mucous membranes as patient has been breathing on nasal cannula with mouth open Neck-no visible JVD, trachea midline Lungs-fair air entry, crackles in lung genao, no wheezing Heart-regular rate Abdomen- soft, nontender, + bowel sounds Extremities- no edema of lower extremities Neuro-awake, verbal, speaks in full sentences, cooperative on exam, unclear whether she understands the complexity of her health situation ASSESSMENT & PLAN: This is a 86 year old F who follows with a primary care doctor in [place] named Dr. Alexander and on home medications of Lasix 40 mg daily, atenolol 25 mg daily (1/2 tablet of 50 mg) daily and enalapril 20 mg daily for blood pressure , and eye drops of dorzolamide-timolol and latanoprost who as per her family members at bedside ( and 3 sons) that patient has been having shortness of breath since 12/14/16 and for which patient presents to the ER on 12/16/16. On evaluation by the ED, patient had elevated BNP>[id number] and CXR findings of pulmonary congestion. The ED physician ordered 40 mg of Lasix IV. Patient has EKG 84 bpm with left axis deviation and left bundle branch block in sinus rhythm with PVCs CHF with elevated troponins and acute on chronic renal failure Echo on 12/17/16 The left ventricle is moderately dilated. There is severe concentric left ventricular hypertrophy. Septal motion is consistent with conduction abnormality. There is severe global hypokinesis of the left ventricle. There is inferior wall akinesis. Ejection Fraction = <15%. The left atrium is mildly dilated. There is moderate to severe mitral regurgitation. Cardiology evaluation and recommendations: "Given the fact that the patient has severe underlying dementia and a longstanding history of cardiomyopathy, I believe the most prudent course of action at this point will be for diuresis and medical optimization. So given her renal function, I will increase her Lasix to 80 mg b.i.d. and her electrolytes will be followed closely. Her potassium will also be supplemented at this time. Based on her response to diuresis, we will also likely optimize her beta maryjane to evidence based beta maryjane, most likely Toprol-XL. Her enalapril has been held given her renal function and I agree with this and we will see how she responds to treatment." acute on chronic renal failure -likely will be exacerbated by increased diuretics this is needed to remove pulmonary edema from CHF DVT PROPHYLAXIS was on heparin drip between 12/16/16 to 12/27/16. Heparin drip discontinued on 10 :15 AM 12/27/16 at the request of cardiology Dr. Haro. Subsequent lab draw on 11:12 AM with resulting troponin still elevated 0.401. Have discussed with Dr. Haro in regards to troponemia and is likely due to CHF and renal disease and plan is to hold off heparin drip. Will switch to heparin subcutaneous 5000 units subq q12 hours for DVT prophylaxis continue home eyedrops of dorzolamide-timolol and latanoprost PT/OT ordered DISPOSITION Patient is full code on this admission from 12/16/16 and continues to be full code in an emergency if the patient has sudden cardiac failure or respiratory failure Patient's family on 12/17/16 brings Living Will which states patient's wishes as "IF (A) I am in state of permanent unconsciousness (such as a coma or persistent vegetative condition), or (B) I suffer from a terminal illness or trauma (such as incurable cancer), or (C) I suffer from brain damage or brain disease (such as advanced Alzheimer's) which has rendered me unable to recognize immediate family and close friends and to communicate intelligibly, and if in the opinion of my attending physician, as confirmed by the opinion of a second physician, such is irreversible with no realistic hope of significant recovery then except for measures to keep me comfortable and to relieve pain, I direct that I be allowed to a natural ..." Full code status reaffirmed in emergency situations after review of this documentation on 12/17/[address] Haro have requested palliative care consult for the patient Vital Signs: Date Time Temp Pulse Resp B/P (MAP) Pulse Ox O2 Delivery O2 Flow Rate FiO2 12/17/16 14:59 36.8 78 18 128/79 (95) 99 2.0 12/17/16 12:00 Nasal Cannula 2.0 12/17/16 09:26 86 99 12/17/16 07:45 Nasal Cannula 2.0 12/17/16 07:18 36.7 85 18 126/80 (95) 96 12/17/16 05:26 36.3 85 20 114/73 (87) 99 Nasal Cannula 2.0 12/17/16 04:00 Nasal Cannula 2.0 12/17/16 01:19 97 20 95 Room Air 12/17/16 00:21 112 153/99 (117) 12/17/16 00:00 Nasal Cannula 2.0 12/16/16 23:03 36.2 83 18 150/77 (101) 96 Nasal Cannula 2.0 12/16/16 20:00 Nasal Cannula 2.0 12/16/16 19:00 36.5 83 22 145/93 98 Nasal Cannula 2.0 12/16/16 18:00 36.5 83 22 145/93 (110) 98 Nasal Cannula 2.0 12/16/16 17:30 79 21 147/95 97 Nasal Cannula 2.0 12/16/16 16:51 86 26 147/95 96 Nasal Cannula 2.0 12/16/16 15:27 96 Nasal Cannula 2.0 12/16/16 15:21 83 26 141/96 90 Room Air Lab Results: Results Past 24 Hours Test 12/16/16 19:25 12/16/16 20:43 12/16/16 22:19 12/17/16 03:47 Range/Units Urine Color YELLOW Urine Appearance CLEAR CLEAR Urine pH 5.0 4.5-7.5 Urine Specific Parsons 1.018 1.000-1.030 Urine Protein TRACE NEG Urine Glucose (UA) NEG NEG Urine Ketones NEG NEG Urine Occult Blood NEG NEG Urine Nitrite NEG NEG Urine Bilirubin NEG NEG Urine Urobilinogen NEG NEG Urine Leukocyte Esterase SMALL NEG Urine WBC (Auto) 1-5 0-5 /hpf Urine RBC (Auto) 0-4 0-4 /hpf Urine Hyaline Casts (Auto) 1-5 0-5 /lpf Urine Epithelial Cells (Auto) >30 0-5 /lpf Urine Bacteria (Auto) NEG NEG Troponin I 0.308 0.270 0-0.045 ng/ml Sodium Level 142 146 136-145 mmol/L Potassium Level 4.1 3.7 3.5-5.1 mmol/L Chloride Level 110 111 98-107 mmol/L Carbon Dioxide Level 21 23 21-32 mmol/L Anion Gap 11.0 12.0 3-11 mmol/L Blood Urea Nitrogen 60 60 7-18 mg/dl Creatinine 1.92 2.09 0.60-1.20 mg/dl Est Creatinine Clear Calc Drug Dose 22.5 20.7 ml/min Estimated GFR () 27.2 24.6 Estimated GFR (Non- 23.5 21.2 BUN/Creatinine Ratio 31.4 28.7 10-20 Random Glucose 137 143 70-99 mg/dl Calcium Level 9.0 8.6 8.5-10.1 mg/dl Magnesium Level 2.3 2.4 1.8-2.4 mg/dl Lipase 369 73-393 U/L Thyroid Stimulating Hormone (TSH) 1.300 0.300-4.500 uIu/ml White Blood Count 11.19 4.8-10.8 K/uL Red Blood Count 3.45 4.2-5.4 M/uL Hemoglobin 10.5 12.0-16.0 g/dL Hematocrit 32.9 37-47 % Mean Corpuscular Volume 95.4 80-100 fL Mean Corpuscular Hemoglobin 30.4 25-34 pg Mean Corpuscular Hemoglobin Concent 31.9 32-36 g/dl Platelet Count 311 130-400 K/uL Mean Platelet Volume 10.2 7.4-10.4 fL Neutrophils (%) (Auto) 77.0 % Lymphocytes (%) (Auto) 14.6 % Monocytes (%) (Auto) 7.1 % Eosinophils (%) (Auto) 0.0 % Basophils (%) (Auto) 0.3 % Neutrophils # (Auto) 8.62 1.4-6.5 K/uL Lymphocytes # (Auto) 1.63 1.2-3.4 K/uL Monocytes # (Auto) 0.80 0.11-0.59 K/uL Eosinophils # (Auto) 0.00 0-0.5 K/uL Basophils # (Auto) 0.03 0-0.2 K/uL RDW Standard Deviation 49.8 36.4-46.3 fL RDW Coefficient of Variation 14.6 11.5-14.5 % Immature Granulocyte % (Auto) 1.0 % Immature Granulocyte # (Auto) 0.11 0.00-0.02 K/uL Nucleated RBC Absolute Count (auto) 0.06 0-0 K/uL Nucleated Red Blood Cells % 0.5 % Activated Partial Thromboplast Time 25.7 21.0-31.0 SECONDS Partial Thromboplastin Ratio 1.0 Total Bilirubin 0.5 0.2-1 mg/dl Aspartate Amino Transf (AST/SGOT) 45 15-37 U/L Alanine Aminotransferase (ALT/SGPT) 61 12-78 U/L Alkaline Phosphatase 105 45-117 U/L Total Protein 7.2 6.4-8.2 gm/dl Albumin 2.9 3.4-5.0 gm/dl Globulin 4.3 2.5-4.0 gm/dl Albumin/Globulin Ratio 0.7 0.9-2 Triglycerides Level 172 0-150 mg/dl Cholesterol Level 157 0-200 mg/dl HDL Cholesterol 36 mg/dl LDL Cholesterol, Calculated 87 mg/dl VLDL Cholesterol, Calculated 34 mg/dl Cholesterol/HDL Ratio 4.4 Test 12/17/16 04:40 12/17/16 11:12 Range/Units Activated Partial Thromboplast Time 27.6 21.0-31.0 SECONDS Partial Thromboplastin Ratio 1.1 Sodium Level 145 136-145 mmol/L Potassium Level 3.9 3.5-5.1 mmol/L Chloride Level 111 98-107 mmol/L Carbon Dioxide Level 23 21-32 mmol/L Anion Gap 10.0 3-11 mmol/L Blood Urea Nitrogen 66 7-18 mg/dl Creatinine 2.13 0.60-1.20 mg/dl Est Creatinine Clear Calc Drug Dose 20.3 ml/min Estimated GFR () 24.0 Estimated GFR (Non- 20.7 BUN/Creatinine Ratio 31.1 10-20 Random Glucose 144 70-99 mg/dl Calcium Level 8.8 8.5-10.1 mg/dl Total Bilirubin 0.4 0.2-1 mg/dl Aspartate Amino Transf (AST/SGOT) 37 15-37 U/L Alanine Aminotransferase (ALT/SGPT) 58 12-78 U/L Alkaline Phosphatase 112 45-117 U/L Troponin I 0.401 0-0.045 ng/ml Total Protein 7.5 6.4-8.2 gm/dl Albumin 3.1 3.4-5.0 gm/dl Globulin 4.4 2.5-4.0 gm/dl Albumin/Globulin Ratio 0.7 0.9-2
[2016-12-17] MEDS: FUROSEMIDE INJ 80 MG in SYRINGE 0 ML IV SCH (17:52)
[2016-12-17] MEDS: POTASSIUM CHLORIDE 10 MEQ TABCR PO SCH (17:53)
[2016-12-17] MEDS: HEPARIN SOD 5000 UNIT/0.5 ML CARP SQ SCH (21:24)
[2016-12-18] VITALS (9 sets, daily range): BP systolic 120–150; BP diastolic 67–93; PULSE 59–75; TEMP 36.3–37.2; O2SAT 91–99
[2016-12-18 06:10] LABS: HEMATOCRIT 35.6 % (37-47); MEAN CORPUSCULAR HEMOGLOBIN 31.6 pg (25-34); MEAN CORPUSCULAR HGB CONC 32.6 g/dl (32-36); MEAN PLATELET VOLUME 10.8 fL (7.4-10.4); PLATELET COUNT 362 K/uL (130-400); RED BLOOD COUNT 3.67 M/uL (4.2-5.4); WHITE BLOOD COUNT 13.55 K/uL (4.8-10.8)
[2016-12-18 06:45] LABS: CREATININE 2.34 mg/dl (0.60-1.20)
[2016-12-18 06:46] LABS: BUN/CREATININE RATIO 33.9 (10-20); CALCIUM 8.9 mg/dl (8.5-10.1); MAGNESIUM 2.4 mg/dl (1.8-2.4); POTASSIUM 3.8 mmol/L (3.5-5.1)
[2016-12-18 06:48] LABS: ALB/GLOB RATIO 0.7 (0.9-2)
--- NOTE | 2016-12-18 07:20 | DIAGNOSTIC IMAGING REPORT ---
SINGLE VIEW CHEST CLINICAL HISTORY: Follow-up CHF. FINDINGS: An AP, portable, upright chest radiograph is compared to study dated 12/17/2016. The examination is degraded by portable technique and patient rotation. The heart is enlarged and there is atherosclerotic calcification of the thoracic aorta. There is pulmonary vascular congestion and interstitial edema. There are layering pleural effusions with bibasilar consolidation. No pneumothorax is seen. The skeletal structures are osteopenic. The bony thorax is grossly intact. Degenerative change is noted throughout the thoracic spine. IMPRESSION: 1. Cardiomegaly with evidence of congestive failure and interstitial edema. This has not significantly changed from yesterday. 2. There are layering pleural effusions with bibasilar consolidation, likely representing atelectasis. Correlate clinically for evidence of superimposed pneumonia. Electronically signed by: Steve Farley M.D. 12/18/2016 7:19 AM Dictated Date/Time: 12/18/2016 7:18 AM
[2016-12-18] MEDS: POTASSIUM CHLORIDE 10 MEQ TABCR PO SCH ×2 (08:24→17:09)
[2016-12-18] MEDS: ASPIRIN 81 MG ECTAB PO SCH (08:24)
[2016-12-18] MEDS: FUROSEMIDE INJ 80 MG in SYRINGE 0 ML IV SCH ×2 (08:24→17:06)
[2016-12-18] MEDS: LATANOPROST 0.005% OP SOLN 2.5 ML BTL OP SCH (08:24)
[2016-12-18] MEDS: DORZOLAMIDE/TIMOLOL 22.3/6.8MG/ML 10 ML BTL OP SCH (08:24)
[2016-12-18] MEDS: HEPARIN SOD 5000 UNIT/0.5 ML CARP SQ SCH ×2 (08:28→21:14)
--- NOTE | 2016-12-18 09:03 | Cardiology Follow-Up ---
Subjective Subjective Date of Service: Dec 18, 2016. Pt evaluation today including: conversation w/ patient, physical exam, chart review, lab review, review of studies, review of inpatient medication list Additional Details: Pt seen and examined, remains significantly confused but at baseline. No complaints overnight. Specifically denies cp, sob, palpitations, lightheadedness or dizziness. Tele reviewed: sinus rhythm with a 7 beat run of NSVT this AM. Problem List Medical Problems: (1) Congestive heart failure (CHF) Status: Acute Review of Systems Constitutional: + weakness, + fatigue ENT: No trouble swallowing Respiratory: + shortness of breath, + dyspnea on exertion, No cough Cardiac: + edema, No chest pain Abdomen: No pain, No nausea, No vomiting Female : + problem reported (reports feeling like she has to pee, but has Lemus in place) Neurologic: + memory loss (as reported by family and PMH) Psychiatric: No depression symptoms, No anxiety Objective Vital Signs Last Vital Signs Documentation Date Time Temp Pulse Resp B/P (MAP) Pulse Ox O2 Delivery O2 Flow Rate FiO2 12/18/16 07:32 36.7 71 20 132/79 (96) 97 2.0 12/18/16 04:00 Nasal Cannula Physical Exam: General Appearance: WD/WN, no apparent distress Eyes: bilateral eyes normal inspection, bilateral eyes PERRL, bilateral eyes EOMI ENT: normal ENT inspection, hearing grossly normal, pharynx normal Neck: supple, no adenopathy, thyroid normal, no JVD, no carotid bruits, trachea midline Respiratory/Chest: chest non-tender, no respiratory distress, + crackles (few fine in bilateral bases) Cardiovascular: regular rate, rhythm, no JVD, + systolic murmur (4/6 holosystolic ) Abdomen: normal bowel sounds, non tender, soft, no organomegaly, no pulsatile mass Extremities: normal inspection, no calf tenderness, + pedal edema (trace b/l LE edema) Neurologic/Psychiatric: 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 acute decompensated systolic heart failure diuresing well I/O's more accurate now with lemus will cont with current dose of lasix follow lytes and replete as necessary appreciate palliative care contribution 2. acute on chronic renal failure baseline creat reportedly 1.5-2.2 will follow I do not see a role for nephrology at this point family aware of situation and risk of permanent renal failure remain of CON avoid NSAIDS 3. NSVT will change atenolol to toprol XL for greater beta blockade also an EBB 4. Moderate to severe mitral regurgitation stable cont to monitor on tele
--- NOTE | 2016-12-18 16:34 | Palliative Care Progress Note ---
Palliative Care Progress Note Date of Service Dec 18, 2016. Subjective Pt evaluation today including: conversation w/ patient, conversation w/ family (3 sons, 1 daughter, ), physical exam, chart review, lab review, conversation w/ art consultant, review of inpatient medication list Pain: 0/10 PO Intake: tolerating diet Voiding: lemus catheter in place -Patient looks slightly better today as far as her ease of breathing. She remains at her baseline mental status of confusion/short-term memory loss. -Patient states she feels a little better but is still very tired. Family all agrees that she looks better from a respiratory standpoint but remains sleepy. -Discussed with family about patient's plan of care. Review of Systems Constitutional: + weakness, + fatigue ENT: No trouble swallowing Respiratory: + cough, + dyspnea on exertion, No wheezing Cardiac: No chest pain, No edema Abdomen: No pain, No nausea, No vomiting Neurologic: + memory loss Psychiatric: No depression symptoms, No anxiety Objective Vital Signs Date Time Temp Pulse Resp B/P (MAP) Pulse Ox O2 Delivery O2 Flow Rate FiO2 12/18/16 16:16 95 Nasal Cannula 2.0 12/18/16 15:27 36.4 71 20 120/78 (92) 95 Room Air 12/18/16 12:00 Nasal Cannula 2.0 12/18/16 11:45 36.8 59 18 136/84 (101) 96 Room Air 12/18/16 08:00 Nasal Cannula 2.0 12/18/16 07:32 36.7 71 20 132/79 (96) 97 2.0 12/18/16 04:00 Nasal Cannula 2.0 12/18/16 03:58 37.2 65 18 137/86 (103) 91 Nasal Cannula 2.0 12/18/16 00:07 36.6 71 18 120/81 (94) 95 Nasal Cannula 2.0 12/18/16 00:00 Nasal Cannula 2.0 12/17/16 20:37 36.8 90 22 127/78 (94) 90 Nasal Cannula 2.5 12/17/16 20:00 Nasal Cannula 2.0 Physical Exam General Appearance: no apparent distress ENT: hearing grossly normal Neck: supple, no JVD Respiratory/Chest: no respiratory distress, no accessory muscle use, + crackles (bilateral bases, mildly improved) Cardiovascular: regular rate, rhythm, no edema, + normal peripheral pulses Abdomen: normal bowel sounds, non tender, soft Neurologic/Psychiatric: alert, normal mood/affect, + disoriented Skin: normal color Laboratory Results Last 24 Hours Test 12/18/16 05:40 White Blood Count 13.55 K/uL Red Blood Count 3.67 M/uL Hemoglobin 11.6 g/dL Hematocrit 35.6 % Mean Corpuscular Volume 97.0 fL Mean Corpuscular Hemoglobin 31.6 pg Mean Corpuscular Hemoglobin Concent 32.6 g/dl RDW Standard Deviation 51.0 fL RDW Coefficient of Variation 14.8 % Platelet Count 362 K/uL Mean Platelet Volume 10.8 fL Nucleated RBC Absolute Count (auto) 0.19 K/uL Nucleated Red Blood Cells % 1.4 % Sodium Level 145 mmol/L Potassium Level 3.8 mmol/L Chloride Level 111 mmol/L Carbon Dioxide Level 23 mmol/L Anion Gap 11.0 mmol/L Blood Urea Nitrogen 79 mg/dl Creatinine 2.34 mg/dl Est Creatinine Clear Calc Drug Dose 18.2 ml/min Estimated GFR () 21.4 Estimated GFR (Non- 18.5 BUN/Creatinine Ratio 33.9 Random Glucose 106 mg/dl Calcium Level 8.9 mg/dl Magnesium Level 2.4 mg/dl Total Bilirubin 0.4 mg/dl Aspartate Amino Transf (AST/SGOT) 30 U/L Alanine Aminotransferase (ALT/SGPT) 55 U/L Alkaline Phosphatase 109 U/L Total Protein 7.5 gm/dl Albumin 3.1 gm/dl Globulin 4.4 gm/dl Albumin/Globulin Ratio 0.7 Assessment and Plan Problem list: SOB/PRIEST CHF exacerbation, EF <15% on echocardiogram, moderate to severe mitral regurg, severe global hypokinesis of LV, severe concentric LVH, among other findings. Elevated troponin Alzheimer's, advanced. Has about 30 second short-term memory. Hx CKD, creatinine currently 2.13. According to record, baseline is about 1.5- 2.2. Goals of care (Z51.5) Palliative care recs: discussed with patient, , 3 sons, 1 daughter. -Medications being managed/adjusted by dairy truck driver. -Remains on Lasix 80mg IV BID. Has lost 2.8kg (6lb) since admission. Family reports that she was up about 10lb prior to admission. -Creatinine is stable but elevated at 2.34 (up from 2.13 yesterday). Patient's baseline is 1.5-2.2. -Diuresing well. Has Lemus for more accurate I/O. -Plan is to continue medical management while here in hospital. Was made level 5 /DNR yesterday. -Will continue to work with family for DC planning and goals of care. Hospice care would be appropriate for this patient, which was broached with family yesterday. They are potentially open to having hospice come in, patient has had it in the past. I will continue to follow. Thank you. Palliative Performance Scale: 40 % Continued [facility] stay due to: multiple IV medications needed, other (acute care continues) Discharge planning: uncertain
[2016-12-18] MEDS ORDERED: POLYETHYLENE (MIRALAX) 17 GM PACK PO PRN (19:00)
--- NOTE | 2016-12-18 19:00 | Progress Note ---
Internal Med Progress Note Date of Service: Dec 18, 2016. Provider Documentation: SUBJECTIVE: has dementia seems comfortable family in room and as per them patient is doing better today constipated eating ok denies any pain or any complaints OBJECTIVE: Vital Signs-as noted below Exam: General-alert and awake. Not in distress ENT-normal hearing Neck-no neck masses Lungs- cta b/l no wheezing mild bibasilar crackles present Heart-s1 and s2 heard regular rate and rhythm no murmurs Abdomen-soft bowel sounds present no tenderness present no distension Extremities-trace edema no erythema Neuro-alert and awake moves extremities Lab data as noted below. ASSESSMENT & PLAN: This is a 86 year old F presents with sob and chf exacerbation Acute on chronic systolic CHF Echo on 12/17/16 The left ventricle is moderately dilated. There is severe concentric left ventricular hypertrophy. Septal motion is consistent with conduction abnormality. There is severe global hypokinesis of the left ventricle. There is inferior wall akinesis. Ejection Fraction = <15%. The left atrium is mildly dilated. There is moderate to severe mitral regurgitation. On IV lasix 80mg bid\ cardiology on board and appreciate inputs palliative care consulted and appreciate inpuits acute on chronic renal failure stage 3 cr 2.3 today on iv diuretics f/u labs. Mild elevation of troponin demand ischemia nstemi? from renal failure and chf continue home eyedrops of dorzolamide-timolol and latanoprost PT/OT ordered DVT PROPHYLAXIS hep sub q DISPOSITION family contemplating hospice on discharge social service for d/c planning Possible d/c in 2-3 days Vital Signs: Date Time Temp Pulse Resp B/P (MAP) Pulse Ox O2 Delivery O2 Flow Rate FiO2 12/18/16 16:16 95 Nasal Cannula 2.0 12/18/16 15:27 36.4 71 20 120/78 (92) 95 Room Air 12/18/16 12:00 Nasal Cannula 2.0 12/18/16 11:45 36.8 59 18 136/84 (101) 96 Room Air 12/18/16 08:00 Nasal Cannula 2.0 12/18/16 07:32 36.7 71 20 132/79 (96) 97 2.0 12/18/16 04:00 Nasal Cannula 2.0 12/18/16 03:58 37.2 65 18 137/86 (103) 91 Nasal Cannula 2.0 12/18/16 00:07 36.6 71 18 120/81 (94) 95 Nasal Cannula 2.0 12/18/16 00:00 Nasal Cannula 2.0 12/17/16 20:37 36.8 90 22 127/78 (94) 90 Nasal Cannula 2.5 12/17/16 20:00 Nasal Cannula 2.0 Lab Results: Results Past 24 Hours Test 12/18/16 05:40 Range/Units White Blood Count 13.55 4.8-10.8 K/uL Red Blood Count 3.67 4.2-5.4 M/uL Hemoglobin 11.6 12.0-16.0 g/dL Hematocrit 35.6 37-47 % Mean Corpuscular Volume 97.0 80-100 fL Mean Corpuscular Hemoglobin 31.6 25-34 pg Mean Corpuscular Hemoglobin Concent 32.6 32-36 g/dl RDW Standard Deviation 51.0 36.4-46.3 fL RDW Coefficient of Variation 14.8 11.5-14.5 % Platelet Count 362 130-400 K/uL Mean Platelet Volume 10.8 7.4-10.4 fL Nucleated RBC Absolute Count (auto) 0.19 0-0 K/uL Nucleated Red Blood Cells % 1.4 % Sodium Level 145 136-145 mmol/L Potassium Level 3.8 3.5-5.1 mmol/L Chloride Level 111 98-107 mmol/L Carbon Dioxide Level 23 21-32 mmol/L Anion Gap 11.0 3-11 mmol/L Blood Urea Nitrogen 79 7-18 mg/dl Creatinine 2.34 0.60-1.20 mg/dl Est Creatinine Clear Calc Drug Dose 18.2 ml/min Estimated GFR () 21.4 Estimated GFR (Non- 18.5 BUN/Creatinine Ratio 33.9 10-20 Random Glucose 106 70-99 mg/dl Calcium Level 8.9 8.5-10.1 mg/dl Magnesium Level 2.4 1.8-2.4 mg/dl Total Bilirubin 0.4 0.2-1 mg/dl Aspartate Amino Transf (AST/SGOT) 30 15-37 U/L Alanine Aminotransferase (ALT/SGPT) 55 12-78 U/L Alkaline Phosphatase 109 45-117 U/L Total Protein 7.5 6.4-8.2 gm/dl Albumin 3.1 3.4-5.0 gm/dl Globulin 4.4 2.5-4.0 gm/dl Albumin/Globulin Ratio 0.7 0.9-2
[2016-12-19] VITALS (7 sets, daily range): BP systolic 102–150; BP diastolic 61–92; PULSE 68–74; TEMP 36.4–36.7; O2SAT 94–99
[2016-12-19 06:45] LABS: ALB/GLOB RATIO 0.6 (0.9-2); BUN/CREATININE RATIO 37.7 (10-20); CALCIUM 9.1 mg/dl (8.5-10.1); CREATININE 2.1 mg/dl (0.60-1.20); MAGNESIUM 2.4 mg/dl (1.8-2.4); POTASSIUM 4.6 mmol/L (3.5-5.1)
[2016-12-19] MEDS: ASPIRIN 81 MG ECTAB PO SCH (08:35)
[2016-12-19] MEDS: LATANOPROST 0.005% OP SOLN 2.5 ML BTL OP SCH (08:35)
[2016-12-19] MEDS: FUROSEMIDE INJ 80 MG in SYRINGE 0 ML IV SCH ×2 (08:35→17:18)
[2016-12-19] MEDS: DORZOLAMIDE/TIMOLOL 22.3/6.8MG/ML 10 ML BTL OP SCH (08:35)
[2016-12-19] MEDS: POTASSIUM CHLORIDE 10 MEQ TABCR PO SCH ×2 (08:36→17:18)
[2016-12-19] MEDS: HEPARIN SOD 5000 UNIT/0.5 ML CARP SQ SCH (08:37)
[2016-12-19] MEDS ORDERED: POLYETHYLENE (MIRALAX) 17 GM PACK PO ONE (09:00)
--- NOTE | 2016-12-19 10:11 | Cardiology Follow-Up ---
Subjective Subjective Date of Service: Dec 19, 2016. Pt evaluation today including: conversation w/ patient, physical exam, chart review, lab review, review of studies, review of inpatient medication list Additional Details: Pt seen and examined, remains at baseline confused but answering questions appropriately. Only complaint that she voices is fatigue. Denies cp, sob, palpitations, lightheadedness or dizziness. Tele reviewed: sinus rhythm without significant arrhythmia. Problem List Medical Problems: (1) Congestive heart failure (CHF) Status: Acute Review of Systems Constitutional: + weakness, + fatigue ENT: No trouble swallowing Respiratory: + cough, + dyspnea on exertion, No wheezing Cardiac: No chest pain, No edema Abdomen: No pain, No nausea, No vomiting Female : + problem reported (reports feeling like she has to pee, but has [place] in place) Neurologic: + memory loss Psychiatric: No depression symptoms, No anxiety Objective Vital Signs Last Vital Signs Documentation Date Time Temp Pulse Resp B/P (MAP) Pulse Ox O2 Delivery O2 Flow Rate FiO2 12/19/16 08:00 Nasal Cannula 2.0 12/19/16 07:57 36.7 68 18 125/61 (82) 96 Physical Exam: General Appearance: WD/WN, no apparent distress Eyes: bilateral eyes normal inspection, bilateral eyes PERRL, bilateral eyes EOMI ENT: normal ENT inspection, hearing grossly normal, pharynx normal Neck: supple, no adenopathy, thyroid normal, no JVD, no carotid bruits, trachea midline Respiratory/Chest: no respiratory distress, no accessory muscle use, + crackles (bilateral bases, mildly improved) Cardiovascular: regular rate, rhythm, no edema, + systolic murmur, + gallop/S4 , + normal peripheral pulses Abdomen: normal bowel sounds, non tender, soft, no organomegaly, no pulsatile mass Extremities: normal range of motion, non-tender, normal inspection, no pedal edema, no calf tenderness, + pedal edema (trace b/l LE edema) 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 acute decompensated systolic heart failure diuresing well has diuresed over 6L so far and renal function improving will cont with current dose of lasix follow lytes and replete as necessary appreciate palliative care contribution 2. acute on chronic renal failure baseline creat reportedly 1.5-2.2 will follow I do not see a role for nephrology at this point family aware of situation and risk of permanent renal failure remain of CON avoid NSAIDS 3. NSVT will change atenolol to toprol XL for greater beta blockade also an EBB 4. Moderate to severe mitral regurgitation stable cont to monitor on tele Continued [facility] stay due to: multiple IV medications needed, other (acute care continues) Discharge planning: uncertain
--- NOTE | 2016-12-19 12:16 | Palliative Care Progress Note ---
Palliative Care Progress Note Date of Service Dec 19, 2016. Subjective Pt evaluation today including: conversation w/ patient, conversation w/ family , chart review Pain: none PO Intake: tolerating diet Voiding: lemus catheter in place Met briefly with patient and family. Patient is awake and alert. Looks a little bit better today, less short of breath at rest. No N/V/D. C/o fatigue and weakness but does feel that this is slightly improved. She is diuresing well, has now lost 4.7kg (10lbs). Creatinine is down today-- 2.10 from 2.34 yesterday. I spoke with the patient and family at bedside, patient should get out of bed and move around as tolerated. At home she is able to walk with a walker, they would like to maintain that baseline. Assessment and Plan Problem list: SOB/PRIEST Weakness/fatigue CHF exacerbation, EF <15% on echocardiogram, moderate to severe mitral regurg, severe global hypokinesis of LV, severe concentric LVH, among other findings. Elevated troponin Alzheimer's, advanced. Has about 30 second short-term memory. Hx CKD, creatinine currently 2.13. According to record, baseline is about 1.5- 2.2. Goals of care (Z51.5) Palliative care recs: discussed with patient, , 3 sons, 1 daughter. -Medications being managed/adjusted by viner operator. -Remains on Lasix 80mg IV BID. Has lost 4.7kg (10lb) since admission. Family reports that she was up about 10lb prior to admission. -Creatinine is improved 2.10 from 2.34. Patient's baseline is 1.5-2.2. -Diuresing well. Has Lemus for more accurate I/O. -Plan is to continue medical management while here in hospital. Was made level 5 /DNR this admission. -Discussed DC planning today. Family would like to take patient home with hospice upon discharge. While she is here, they would like PT/OT to see her and for patient to be getting OOB. Patient is NOT currently "comfort measures only. " At home, her baseline is independent with ADL and walking short distances with walker-- their goal is to maintain that baseline. I asked OT to work with patient. manager icu is following and did meet with them today. I will continue to follow as needed. Thank you. Palliative Performance Scale: 40 % Continued [facility] stay due to: multiple IV medications needed, other (acute care continues) Discharge planning: uncertain
[2016-12-19] MEDS ORDERED: METOPROLOL SUCC 25MG EXT REL TAB PO ONE (17:00)
[2016-12-19] MEDS ORDERED: NURSING VERBAL MED ORDER ONE (18:00)
--- NOTE | 2016-12-19 18:12 | Progress Note ---
Internal Med Progress Note Date of Service: Dec 19, 2016. Provider Documentation: SUBJECTIVE: has dementia resting comfortably denies chest pain or sob says ate good afebrile OBJECTIVE: Vital Signs-as noted below Exam: General-alert and awake. Not in distress ENT-normal hearing Neck-no neck masses Lungs- cta b/l no wheezing mild bibasilar crackles present Heart-s1 and s2 heard regular rate and rhythm no murmurs Abdomen-soft bowel sounds present no tenderness present no distension Extremities-trace edema no erythema Neuro-alert and awake moves extremities Lab data as noted below. ASSESSMENT & PLAN: This is a 86 year old F presents with sob and chf exacerbation Acute on chronic systolic CHF Echo on 12/17/16 The left ventricle is moderately dilated. There is severe concentric left ventricular hypertrophy. Septal motion is consistent with conduction abnormality. There is severe global hypokinesis of the left ventricle. There is inferior wall akinesis. Ejection Fraction = <15%. The left atrium is mildly dilated. There is moderate to severe mitral regurgitation. On IV lasix 80mg bid\ cardiology on board and appreciate inputs palliative care consulted and appreciate inpuits to continue iv Lasix started on Toprol xl acute on chronic renal failure stage 3 cr 2.1 today on iv diuretics f/u labs. Mild elevation of troponin demand ischemia nstemi? from renal failure and chf today troponin elevated to 2.7 patient asymptomatic ekg shows LBBB which is old started on iv heparin as per cardiology will monitor continue home eyedrops of dorzolamide-timolol and latanoprost PT/OT ordered DVT PROPHYLAXIS hep sub q DISPOSITION family contemplating hospice on discharge social service for d/c planning Possible d/c in 2-3 days Vital Signs: Date Time Temp Pulse Resp B/P (MAP) Pulse Ox O2 Delivery O2 Flow Rate FiO2 12/19/16 15:11 36.6 74 18 123/76 (92) 96 2.0 12/19/16 12:00 Nasal Cannula 2.0 12/19/16 11:55 36.6 69 20 137/92 (107) 99 2.0 12/19/16 08:00 Nasal Cannula 2.0 12/19/16 07:57 36.7 68 18 125/61 (82) 96 2.0 12/19/16 04:21 36.5 69 18 102/61 (75) 94 Nasal Cannula 3.0 12/19/16 04:00 Nasal Cannula 2.0 12/19/16 00:02 Nasal Cannula 2.0 12/18/16 23:51 36.6 73 18 123/67 (85) 95 Nasal Cannula 2.0 12/18/16 20:00 99 Nasal Cannula 2.0 12/18/16 19:57 36.3 75 20 150/93 (112) 99 Room Air Lab Results: Results Past 24 Hours Test 12/19/16 05:48 12/19/16 16:50 Range/Units Sodium Level 144 136-145 mmol/L Potassium Level 4.6 3.5-5.1 mmol/L Chloride Level 110 98-107 mmol/L Carbon Dioxide Level 25 21-32 mmol/L Anion Gap 9.0 3-11 mmol/L Blood Urea Nitrogen 79 7-18 mg/dl Creatinine 2.10 0.60-1.20 mg/dl Est Creatinine Clear Calc Drug Dose 18.7 ml/min Estimated GFR () 24.4 Estimated GFR (Non- 21.1 BUN/Creatinine Ratio 37.7 10-20 Random Glucose 104 70-99 mg/dl Calcium Level 9.1 8.5-10.1 mg/dl Magnesium Level 2.4 1.8-2.4 mg/dl Total Bilirubin 0.5 0.2-1 mg/dl Aspartate Amino Transf (AST/SGOT) 24 15-37 U/L Alanine Aminotransferase (ALT/SGPT) 46 12-78 U/L Alkaline Phosphatase 116 45-117 U/L Total Protein 7.7 6.4-8.2 gm/dl Albumin 3.0 3.4-5.0 gm/dl Globulin 4.7 2.5-4.0 gm/dl Albumin/Globulin Ratio 0.6 0.9-2 Troponin I 2.780 0-0.045 ng/ml
[2016-12-19] MEDS: HEPARIN 25000 UNIT/ D5W 500 ML (PHARMACY PREPARED) IV PRN ×2 (19:35)
[2016-12-20] VITALS (10 sets, daily range): BP systolic 100–179; BP diastolic 68–94; PULSE 70–86; TEMP 36.5–37.1; O2SAT 92–97
[2016-12-20 01:49] LABS: PARTIAL THROMBOPLASTIN RATIO 2.1
[2016-12-20 06:15] LABS: PARTIAL THROMBOPLASTIN RATIO 2.4
[2016-12-20 09:08] LABS: HEMATOCRIT 42.7 % (37-47); MEAN CELL VOLUME 96.6 fL (80-100); MEAN CORPUSCULAR HEMOGLOBIN 31.4 pg (25-34); MEAN CORPUSCULAR HGB CONC 32.6 g/dl (32-36); MEAN PLATELET VOLUME 11.2 fL (7.4-10.4); PLATELET COUNT 456 K/uL (130-400); RED BLOOD COUNT 4.42 M/uL (4.2-5.4); WHITE BLOOD COUNT 14.87 K/uL (4.8-10.8)
[2016-12-20 09:13] LABS: CALCIUM 9.3 mg/dl (8.5-10.1); CREATININE 2.04 mg/dl (0.60-1.20); MAGNESIUM 2.6 mg/dl (1.8-2.4); POTASSIUM 4.8 mmol/L (3.5-5.1)
[2016-12-20 09:25] LABS: ALB/GLOB RATIO 0.6 (0.9-2)
[2016-12-20] MEDS: FUROSEMIDE INJ 80 MG in SYRINGE 0 ML IV SCH ×2 (09:29→17:44)
[2016-12-20] MEDS: DORZOLAMIDE/TIMOLOL 22.3/6.8MG/ML 10 ML BTL OP SCH (09:30)
[2016-12-20] MEDS: ASPIRIN 81 MG ECTAB PO SCH (09:31)
[2016-12-20] MEDS: LATANOPROST 0.005% OP SOLN 2.5 ML BTL OP SCH (09:31)
[2016-12-20] MEDS: POTASSIUM CHLORIDE 10 MEQ TABCR PO SCH ×2 (09:34→17:00)
[2016-12-20] MEDS: METOPROLOL SUCC 25MG EXT REL TAB PO SCH (10:32)
--- NOTE | 2016-12-20 10:52 | Cardiology Follow-Up ---
Subjective Subjective Date of Service: Dec 20, 2016. Pt evaluation today including: conversation w/ patient, conversation w/ family , physical exam, chart review, lab review, review of studies, review of inpatient medication list Additional Details: Pt seen and examined, with at bedside. Pt states that she thinks she feels ok. States that her bladder is full. Denies cp, sob, palpitations, lightheadedness or dizziness. Tele reviewed: sinus with underlying LBBB. Problem List Medical Problems: (1) Congestive heart failure (CHF) Status: Acute Review of Systems Constitutional: + weakness, + fatigue ENT: No trouble swallowing Respiratory: + shortness of breath, + dyspnea on exertion, No cough Cardiac: + edema, No chest pain Abdomen: No pain, No nausea, No vomiting Female : + problem reported (reports feeling like she has to pee, but has Landa[place] in place) Neurologic: + memory loss (as reported by family and PMH) Psychiatric: No depression symptoms, No anxiety Objective Vital Signs Last Vital Signs Documentation Date Time Temp Pulse Resp B/P (MAP) Pulse Ox O2 Delivery O2 Flow Rate FiO2 12/20/16 10:34 95 Nasal Cannula 12/20/16 07:45 2.0 12/20/16 07:36 36.5 72 28 139/87 (104) Physical Exam: General Appearance: WD/WN, no apparent distress Eyes: bilateral eyes normal inspection, bilateral eyes PERRL, bilateral eyes EOMI ENT: normal ENT inspection, hearing grossly normal, pharynx normal Neck: supple, no adenopathy, thyroid normal, no JVD, no carotid bruits, trachea midline Respiratory/Chest: no respiratory distress, no accessory muscle use, + crackles (bilateral bases, mildly improved) Cardiovascular: regular rate, rhythm, no edema, + systolic murmur, + gallop/S4 , + normal peripheral pulses Abdomen: normal bowel sounds, non tender, soft, no organomegaly, no pulsatile mass Extremities: normal range of motion, non-tender, normal inspection, no pedal edema, no calf tenderness, + pedal edema (trace b/l LE edema) Neurologic/Psychiatric: packer II-XII nml as tested, no motor/sensory deficits, alert, normal mood/affect, + disoriented Skin: normal color, warm/dry, no rash Lymphatic: no adenopathy Assessment and Plan 1. acute decompensated systolic heart failure diuresing well starting to slow down, likely becoming euvolemic will give PM dose of IV lasix and then hold will likely resume po in AM 2. acute on chronic renal failure baseline creat reportedly 1.5-2.2 will follow continues to improve I do not see a role for nephrology at this point family aware of situation and risk of permanent renal failure remain of CON avoid NSAIDS 3. NSVT cont metoprolol succinate 4. Moderate to severe mitral regurgitation stable 5. acute myocardial infarction appears to have suffered event yesterday but remained asymptomatic and hemodynamically stable through out continues to deny cp or sob discussed finding and negative prognosis with no indication for further intervention at this point given that she is pain free, renal failure and desire to be discharged as soon as possible on hospice explained to that no further interventions would prolong her life and would put her at significant risk of complication, he agrees to avoid any further procedures ok to d/c tele from cardiac standpoint Continued [facility] stay due to: multiple IV medications needed, other (acute care continues) Discharge planning: uncertain
--- NOTE | 2016-12-20 11:25 | Palliative Care Progress Note ---
Palliative Care Progress Note Date of Service Dec 20, 2016. Subjective Pt evaluation today including: conversation w/ patient, conversation w/ family (, Ayden), physical exam, chart review, conversation w/ customer care consultant, review of inpatient medication list Pain: none PO Intake: tolerating diet Voiding: lemus catheter in place -Patient is still feeling about the same today. Tired, fatigued, weak. Not wanting to get out of bed. -It appears as though she had a silent, but significant, MA last night. Her troponin is elevated at 19.7 today (up from 2.78 yesterday). Inferior and anterior ST elevation on 12-lead EKG last evening at 1630. -Patient has had no chest pain or discomfort throughout last evening and today. She does still c/o dyspnea on exertion, but again, no chest pain. -Heparin infusion continues. Co Founder And Director added metoprolol. Met with patient's son and in room later at 1300. I updated Kayden (son) on events of last night and patient's medical conditions. He understands that patient is not candidate for cardiac catheterization. He is in agreement. We also discussed that patient may not gain back much of her baseline function at this point with a severely weakened heart with the added insult from the MA. Family verbalized understanding. At this point, I recommended that tomorrow they get the patient home with hospice. They are in agreement and would like to get patient home tomorrow. Review of Systems Constitutional: + weakness, + fatigue ENT: No trouble swallowing Respiratory: + dyspnea on exertion, No cough, No wheezing, No dyspnea at rest Cardiac: No chest pain, No edema Abdomen: No pain, No nausea, No vomiting Female : + problem reported (still has feeling of needing to urinate) Psychiatric: No depression symptoms, No anxiety Objective Vital Signs Date Time Temp Pulse Resp B/P (MAP) Pulse Ox O2 Delivery O2 Flow Rate FiO2 12/20/16 10:34 95 Nasal Cannula 12/20/16 07:45 Nasal Cannula 2.0 12/20/16 07:36 36.5 72 28 139/87 (104) 95 Room Air 12/20/16 04:18 37.1 76 18 150/93 (112) 95 12/20/16 04:00 Nasal Cannula 3.0 12/20/16 00:23 37.1 79 18 114/75 (88) 94 3.0 12/20/16 00:00 Nasal Cannula 2.0 12/19/16 21:09 36.4 74 18 150/90 (110) 96 Nasal Cannula 2.5 12/19/16 20:01 96 Nasal Cannula 2.0 12/19/16 16:01 96 Nasal Cannula 2.0 12/19/16 15:11 36.6 74 18 123/76 (92) 96 2.0 12/19/16 12:00 Nasal Cannula 2.0 12/19/16 11:55 36.6 69 20 137/92 (107) 99 2.0 Physical Exam General Appearance: no apparent distress ENT: hearing grossly normal Neck: supple, no JVD Respiratory/Chest: no respiratory distress, no accessory muscle use, + crackles (bilateral bases), + pertinent finding (does get SOB easily with exertion) Cardiovascular: regular rate, rhythm, no edema, + normal peripheral pulses Abdomen: normal bowel sounds, non tender, soft Neurologic/Psychiatric: alert, normal mood/affect, + disoriented Skin: normal color Laboratory Results Last 24 Hours Test 12/19/16 16:50 12/20/16 01:13 12/20/16 05:36 Troponin I 2.780 ng/ml 19.700 ng/ml Activated Partial Thromboplast Time 54.6 SECONDS 61.6 SECONDS Partial Thromboplastin Ratio 2.1 2.4 White Blood Count 14.87 K/uL Red Blood Count 4.42 M/uL Hemoglobin 13.9 g/dL Hematocrit 42.7 % Mean Corpuscular Volume 96.6 fL Mean Corpuscular Hemoglobin 31.4 pg Mean Corpuscular Hemoglobin Concent 32.6 g/dl RDW Standard Deviation 50.7 fL RDW Coefficient of Variation 15.4 % Platelet Count 456 K/uL Mean Platelet Volume 11.2 fL Sodium Level 142 mmol/L Potassium Level 4.8 mmol/L Chloride Level 108 mmol/L Carbon Dioxide Level 24 mmol/L Anion Gap 10.0 mmol/L Blood Urea Nitrogen 76 mg/dl Creatinine 2.04 mg/dl Est Creatinine Clear Calc Drug Dose 19.2 ml/min Estimated GFR () 25.3 Estimated GFR (Non- 21.8 BUN/Creatinine Ratio 37.0 Random Glucose 135 mg/dl Calcium Level 9.3 mg/dl Magnesium Level 2.6 mg/dl Total Bilirubin 0.6 mg/dl Aspartate Amino Transf (AST/SGOT) 158 U/L Alanine Aminotransferase (ALT/SGPT) 52 U/L Alkaline Phosphatase 113 U/L Total Protein 8.2 gm/dl Albumin 3.2 gm/dl Globulin 5.0 gm/dl Albumin/Globulin Ratio 0.6 Assessment and Plan Problem list: SOB/PRIEST Weakness/fatigue CHF exacerbation, EF <15% on echocardiogram, moderate to severe mitral regurg, severe global hypokinesis of LV, severe concentric LVH, among other findings. Elevated troponin Alzheimer's, advanced. Has about 30 second short-term memory. Hx CKD, creatinine currently 2.13. According to record, baseline is about 1.5- 2.2. Goals of care (Z51.5) Palliative care recs: discussed with patient, , 3 sons, 1 daughter. -Patient had MA last night. Metoprolol XL 12.5mg PO QAM added by clinical haematologist. Patient remains on IV heparin gtt. -I'd like to meet with family today to discuss last evening's events and plan. As clinical haematologist told the patient's , cardiac catheterization is not preferred at this time due to her impaired kidney function and the fact that it likely would not change any treatment. -Recommend sending patient home with Roxanol 5mg PO Q1h PRN pain or SOB. -Should have nitro sublingual tabs to take if chest pain occurs. If nitro does not work for chest pain, morphine should be given. -Creatinine is stable. Had about 475ml urine out last night. -Plan is for one more dose of IV lasix tonight, then convert to PO tomorrow morning. -Plan remains for home with hospice. Case management following. Hopefully patient can leave tomorrow? Update: At 1300, spoke with patient's son, Kayden, and . They would like to get the patient home with hospice tomorrow. They verbalized understanding of patient's condition, deny questions/concerns. Case management has set up transport for tomorrow at 1500. [facility] aware and will be seeing patient here in hospital tomorrow and will see her at home tomorrow evening. Son, Mike, is to call the office of aging and have the [facility] care increased to the maximum amount of hours. I also called the patient's granddaughter, Becky (formerly a nurse here at [facility] and is a cardiothoracic ICU nurse) at the request of patient's son to give an update. She is in agreement with the plan. Please don't hesitate to contact me with any further questions/concerns. Palliative Performance Scale: 40 % Continued [facility] stay due to: multiple IV medications needed, other (acute care continues) Discharge planning: uncertain
[2016-12-20] MEDS: HEPARIN 25000 UNIT/ D5W 500 ML (PHARMACY PREPARED) IV PRN ×2 (17:37)
--- NOTE | 2016-12-20 18:09 | Progress Note ---
Internal Med Progress Note Date of Service: Dec 20, 2016. Provider Documentation: SUBJECTIVE: has dementia resting comfortably patient denies chest pain or sob hemodynamics stable OBJECTIVE: Vital Signs-as noted below Exam: General-alert and awake. Not in distress ENT-normal hearing Neck-no neck masses Lungs- cta b/l no wheezing mild bibasilar crackles present Heart-s1 and s2 heard regular rate and rhythm no murmurs Abdomen-soft bowel sounds present no tenderness present no distension Extremities-trace edema no erythema Neuro-alert and awake moves extremities Lab data as noted below. ASSESSMENT & PLAN: This is a 86 year old F presents with sob and chf exacerbation Acute on chronic systolic CHF Echo on 12/17/16 The left ventricle is moderately dilated. There is severe concentric left ventricular hypertrophy. Septal motion is consistent with conduction abnormality. There is severe global hypokinesis of the left ventricle. There is inferior wall akinesis. Ejection Fraction = <15%. The left atrium is mildly dilated. There is moderate to severe mitral regurgitation. On IV lasix 80mg bid\ cardiology on board and appreciate inputs palliative care consulted and appreciate inpuits to continue iv Lasix today and d/c on po lasix tomorrow plan for home hospice in am acute on chronic renal failure stage 3 cr 2.09 today on iv diuretics f/u labs. STEMI? NSTEMI patient asymptomatic ekg shows LBBB which is old started on iv heparin as per cardiology troponin peaked to 28 plan for home hospice in am continue home eyedrops of dorzolamide-timolol and latanoprost PT/OT ordered DVT PROPHYLAXIS hep sub q DISPOSITION family contemplating hospice on discharge social service for d/c planning plan for home hospice in am Vital Signs: Date Time Temp Pulse Resp B/P (MAP) Pulse Ox O2 Delivery O2 Flow Rate FiO2 12/20/16 14:41 36.8 70 18 179/74 (109) 96 6.0 12/20/16 11:50 Nasal Cannula 2.0 12/20/16 11:18 36.6 70 32 129/84 (99) 97 Nasal Cannula 12/20/16 10:34 95 Nasal Cannula 12/20/16 07:45 Nasal Cannula 2.0 12/20/16 07:36 36.5 72 28 139/87 (104) 95 Room Air 12/20/16 04:18 37.1 76 18 150/93 (112) 95 12/20/16 04:00 Nasal Cannula 3.0 12/20/16 00:23 37.1 79 18 114/75 (88) 94 3.0 12/20/16 00:00 Nasal Cannula 2.0 12/19/16 21:09 36.4 74 18 150/90 (110) 96 Nasal Cannula 2.5 12/19/16 20:01 96 Nasal Cannula 2.0 Lab Results: Results Past 24 Hours Test 12/20/16 01:13 12/20/16 05:36 12/20/16 12:14 12/20/16 15:45 Range/Units Activated Partial Thromboplast Time 54.6 61.6 21.0-31.0 SECONDS Partial Thromboplastin Ratio 2.1 2.4 White Blood Count 14.87 4.8-10.8 K/uL Red Blood Count 4.42 4.2-5.4 M/uL Hemoglobin 13.9 12.0-16.0 g/dL Hematocrit 42.7 37-47 % Mean Corpuscular Volume 96.6 80-100 fL Mean Corpuscular Hemoglobin 31.4 25-34 pg Mean Corpuscular Hemoglobin Concent 32.6 32-36 g/dl RDW Standard Deviation 50.7 36.4-46.3 fL RDW Coefficient of Variation 15.4 11.5-14.5 % Platelet Count 456 130-400 K/uL Mean Platelet Volume 11.2 7.4-10.4 fL Sodium Level 142 136-145 mmol/L Potassium Level 4.8 3.5-5.1 mmol/L Chloride Level 108 98-107 mmol/L Carbon Dioxide Level 24 21-32 mmol/L Anion Gap 10.0 3-11 mmol/L Blood Urea Nitrogen 76 7-18 mg/dl Creatinine 2.04 0.60-1.20 mg/dl Est Creatinine Clear Calc Drug Dose 19.2 ml/min Estimated GFR () 25.3 Estimated GFR (Non- 21.8 BUN/Creatinine Ratio 37.0 10-20 Random Glucose 135 70-99 mg/dl Calcium Level 9.3 8.5-10.1 mg/dl Magnesium Level 2.6 1.8-2.4 mg/dl Total Bilirubin 0.6 0.2-1 mg/dl Aspartate Amino Transf (AST/SGOT) 158 15-37 U/L Alanine Aminotransferase (ALT/SGPT) 52 12-78 U/L Alkaline Phosphatase 113 45-117 U/L Troponin I 19.700 25.500 28.200 0-0.045 ng/ml Total Protein 8.2 6.4-8.2 gm/dl Albumin 3.2 3.4-5.0 gm/dl Globulin 5.0 2.5-4.0 gm/dl Albumin/Globulin Ratio 0.6 0.9-2
[2016-12-20] MEDS ORDERED: NURSING DECISION MEDICATION ORDER SCH (22:45)
[2016-12-21] MEDS ORDERED: MICONAZOLE NITRATE POWDER 43 GM EXT PRN (02:45)
[2016-12-21 03:57] VITALS: BP 98/74; PULSE 83; TEMP 37.3; O2SAT 94
[2016-12-21 06:32] LABS: MEAN CELL VOLUME 95.9 fL (80-100); MEAN CORPUSCULAR HEMOGLOBIN 32.4 pg (25-34); MEAN CORPUSCULAR HGB CONC 33.8 g/dl (32-36); MEAN PLATELET VOLUME 10.8 fL (7.4-10.4); PLATELET COUNT 397 K/uL (130-400); RED BLOOD COUNT 4.38 M/uL (4.2-5.4); WHITE BLOOD COUNT 17.11 K/uL (4.8-10.8)
[2016-12-21 06:50] LABS: PARTIAL THROMBOPLASTIN RATIO 2.9
[2016-12-21 07:00] LABS: BUN/CREATININE RATIO 32.8 (10-20); CREATININE 2.21 mg/dl (0.60-1.20); MAGNESIUM 2.5 mg/dl (1.8-2.4); POTASSIUM 4.8 mmol/L (3.5-5.1)
[2016-12-21 07:02] LABS: ALB/GLOB RATIO 0.6 (0.9-2)
[2016-12-21 07:34] VITALS: BP 105/71; PULSE 76; TEMP 36.4; O2SAT 96
[2016-12-21] MEDS: HEPARIN 25000 UNIT/ D5W 500 ML (PHARMACY PREPARED) IV PRN ×2 (07:43)
[2016-12-21] MEDS: DORZOLAMIDE/TIMOLOL 22.3/6.8MG/ML 10 ML BTL OP SCH (08:48)
[2016-12-21] MEDS: ASPIRIN 81 MG ECTAB PO SCH (08:48)
[2016-12-21] MEDS: LATANOPROST 0.005% OP SOLN 2.5 ML BTL OP SCH (08:48)
[2016-12-21] MEDS: POTASSIUM CHLORIDE 10 MEQ TABCR PO SCH ×2 (08:49→15:50)
[2016-12-21] MEDS: METOPROLOL SUCC 25MG EXT REL TAB PO SCH (08:52)
[2016-12-21] MEDS ORDERED: NURSING VERBAL MED ORDER ONE (09:30)
--- NOTE | 2016-12-21 09:56 | Cardiology Follow-Up ---
Subjective Subjective Date of Service: Dec 21, 2016. Pt evaluation today including: conversation w/ patient, physical exam, chart review, lab review, review of studies, review of inpatient medication list Additional Details: Pt seen and examined, eating breakfast in bed. Remains confused but resting comfortably. Denies cp, sob, palpitations, lightheadedness or dizziness. Problem List Medical Problems: (1) Congestive heart failure (CHF) Status: Acute Review of Systems Constitutional: + weakness, + fatigue ENT: No trouble swallowing Respiratory: + dyspnea on exertion, No cough, No wheezing, No dyspnea at rest Cardiac: No chest pain, No edema Abdomen: No pain, No nausea, No vomiting Female : + problem reported (still has feeling of needing to urinate) Neurologic: + memory loss (as reported by family and PMH) Psychiatric: No depression symptoms, No anxiety Objective Vital Signs Last Vital Signs Documentation Date Time Temp Pulse Resp B/P (MAP) Pulse Ox O2 Delivery O2 Flow Rate FiO2 12/21/16 07:34 36.4 76 18 105/71 (82) 96 3.5 12/21/16 04:00 Nasal Cannula Physical Exam: General Appearance: no apparent distress Eyes: bilateral eyes normal inspection, bilateral eyes PERRL, bilateral eyes EOMI ENT: hearing grossly normal Neck: supple, no JVD Respiratory/Chest: no respiratory distress, no accessory muscle use, + crackles (bilateral bases), + pertinent finding (does get SOB easily with exertion) Cardiovascular: regular rate, rhythm, no edema, + normal peripheral pulses Abdomen: normal bowel sounds, non tender, soft Extremities: normal range of motion, non-tender, normal inspection, no pedal edema, no calf tenderness, + pedal edema (trace b/l LE edema) Neurologic/Psychiatric: alert, normal mood/affect, + disoriented Skin: normal color Lymphatic: no adenopathy Assessment and Plan 1. acute decompensated systolic heart failure diuresed well decreased output, likely euvolemic\ will start on lasix 80mg po daily and can be d/c'ed to home on this dose 2. acute on chronic renal failure baseline creat reportedly 1.5-2.2 will follow continues to improve I do not see a role for nephrology at this point family aware of situation and risk of permanent renal failure remain of CON avoid NSAIDS 3. NSVT cont metoprolol succinate 4. Moderate to severe mitral regurgitation stable 5. acute myocardial infarction appears to have suffered event yesterday but remained asymptomatic and hemodynamically stable through out continues to deny cp or sob discussed finding and negative prognosis with no indication for further intervention at this point given that she is pain free, renal failure and desire to be discharged as soon as possible on hospice explained to that no further interventions would prolong her life and would put her at significant risk of complication, he agrees to avoid any further procedures ok to d/c to home on hospice from cardiac standpoint Continued [facility] stay due to: multiple IV medications needed, other (acute care continues) Discharge planning: uncertain
[2016-12-21] MEDS ORDERED: NTRSLP4 SL (11:07)
[2016-12-21] MEDS ORDERED: ASPEC81 PO (11:07)
[2016-12-21] MEDS ORDERED: TPRSR25 PO (11:07)
[2016-12-21] MEDS ORDERED: OXYC10SO PO (11:07)
[2016-12-21] MEDS ORDERED: MCRK20 PO (11:07)
[2016-12-21] MEDS ORDERED: LSX/80 PO (11:07)
--- NOTE | 2016-12-21 11:09 | Discharge Instructions ---
Discharge Instructions Date of Service Dec 21, 2016. Admission Reason for Admission: CHF Discharge Discharge Diagnosis / Problem: acute chf, [place], ARF Discharge Goals Goal(s): Decrease discomfort, Improve function Activity Recommendations Activity Limitations: resume your previous activity (as tolerated) . Instructions / Follow-Up Instructions / Follow-Up FOLLOWUP WITH FAMILY DOCTOR IN ONE WEEK OR NEEDED LAB: BMP WITH MG LEVELS IN 5-7 DAYS AND FOLLOW RESULTS WITH FAMILY DOCTOR STARTED ON NEW DOSE LASIX AND POTASSIUM SUPPLEMENTS Call your Primary Care doctor if any of the following symptoms or problems start or get worse: * Shortness of breath or difficulty breathing * Wake up at night short of breath * Chest pain * Cough * Swelling of your hands, feet, or legs * More fatigued or tired with your normal activity * Palpitations - sudden fast heart beats WEIGHT * Weigh yourself every morning after using the bathroom. * Use the same scale. * Wear the same amount of clothing. * Write your weight down on a chart. * Call your Primary Care doctor if you gain more than 2-3 pounds in 1-2 days. MEDICATIONS * Use this discharge instruction sheet for medication instructions. * Take your medications at the time your doctor ordered. * Do not skip a dose of your medicines. * If you miss a dose of medicine, take it as soon as possible, but DO NOT DOUBLE A DOSE. * Read your medicine information when you get home. * Know all of the side effects of your medicine. If in doubt, ask your pharmacist * Call your Primary Care doctor's office if you have any side effects. * Be sure all of your doctors know what medicine and herbs you take (including cold, flu, and herbal medicine). Take the following with you to your follow-up doctor appointments: * Weight Chart * Medication List * List of questions Do not drink excessive alcohol, beer or wine. Current Hospital Diet Patient's current hospital diet: AHA Diet (Heart Healthy) Discharge Diet Recommended Diet: AHA Diet (Heart Healthy) Pending Studies Studies pending at discharge: no Laboratory Results Lipid Panel Test 12/17/16 03:47 Range/Units Triglycerides Level 172 H 0-150 mg/dl Cholesterol Level 157 0-200 mg/dl HDL Cholesterol 36 mg/dl Cholesterol/HDL Ratio 4.4 LDL Cholesterol, Calculated 87 mg/dl Medical Emergencies . Who to Call and When: Call 911 or go to the Emergency Room if: * If at any time you feel your situation is an emergency * You have tightness or pain in your chest that does not go away with rest or Nitroglycerin * You are very short of breath even with rest . Non-Emergent Contact Non-Emergency issues call your: Primary Care Provider . . "Provider Documentation" section prepared by [employer]. . VTE Core Measure Inpt VTE Proph given/why not?: Unfractionated heparin SQ
[2016-12-21 12:36] VITALS: BP 101/69; PULSE 77; TEMP 36.3; O2SAT 96
[2016-12-21 14:24] VITALS: BP 101/69; PULSE 77; TEMP 36.3; O2SAT 96
--- NOTE | 2016-12-21 17:19 | Progress Note ---
Internal Med Progress Note Date of Service: Dec 21, 2016. Provider Documentation: SUBJECTIVE: has dementia resting comfortably denies any sob or chest pain eating fine wants to go home 'daughter and in room OBJECTIVE: Vital Signs-as noted below Exam: General-alert and awake. Not in distress ENT-normal hearing Neck-no neck masses Lungs- cta b/l no wheezing mild bibasilar crackles present Heart-s1 and s2 heard regular rate and rhythm no murmurs Abdomen-soft bowel sounds present no tenderness present no distension Extremities-trace edema no erythema Neuro-alert and awake moves extremities Lab data as noted below. ASSESSMENT & PLAN: This is a 86 year old F presents with sob and chf exacerbation Acute on chronic systolic CHF Echo on 12/17/16 The left ventricle is moderately dilated. There is severe concentric left ventricular hypertrophy. Septal motion is consistent with conduction abnormality. There is severe global hypokinesis of the left ventricle. There is inferior wall akinesis. Ejection Fraction = <15%. The left atrium is mildly dilated. There is moderate to severe mitral regurgitation. On IV lasix 80mg bid\ cardiology on board and appreciate inputs palliative care consulted and appreciate inpuits to continue iv Lasix today and d/c on po lasix tomorrow discharging on lasix 80mg daily and kcl 20meg daily f/u labs d/c home with hospice care acute on chronic renal failure stage 3 cr 2.2 today f/u labs. STEMI? NSTEMI patient asymptomatic ekg shows LBBB which is old started on iv heparin as per cardiology troponin peaked to 28 stopped iv heparin patient asymptomatic plan for home hospice in am continue home eyedrops of dorzolamide-timolol and latanoprost discharged home with hospice care Vital Signs: Date Time Temp Pulse Resp B/P (MAP) Pulse Ox O2 Delivery O2 Flow Rate FiO2 12/21/16 14:24 36.3 77 20 96 Nasal Cannula 12/21/16 12:36 36.3 77 20 101/69 (80) 96 4.0 12/21/16 12:00 Nasal Cannula 3.0 12/21/16 08:00 Nasal Cannula 3.0 12/21/16 07:34 36.4 76 18 105/71 (82) 96 3.5 12/21/16 04:00 Nasal Cannula 3.0 12/21/16 03:57 37.3 83 18 98/74 (82) 94 Nasal Cannula 3.0 12/21/16 00:00 Nasal Cannula 3.0 12/20/16 23:52 36.5 86 16 100/68 (79) 92 Room Air 12/20/16 20:05 96 Nasal Cannula 3.0 12/20/16 19:34 36.6 78 18 141/94 (110) 93 2.0 Lab Results: Results Past 24 Hours Test 12/21/16 06:20 Range/Units White Blood Count 17.11 4.8-10.8 K/uL Red Blood Count 4.38 4.2-5.4 M/uL Hemoglobin 14.2 12.0-16.0 g/dL Hematocrit 42.0 37-47 % Mean Corpuscular Volume 95.9 80-100 fL Mean Corpuscular Hemoglobin 32.4 25-34 pg Mean Corpuscular Hemoglobin Concent 33.8 32-36 g/dl RDW Standard Deviation 51.3 36.4-46.3 fL RDW Coefficient of Variation 15.5 11.5-14.5 % Platelet Count 397 130-400 K/uL Mean Platelet Volume 10.8 7.4-10.4 fL Nucleated RBC Absolute Count (auto) 0.03 0-0 K/uL Nucleated Red Blood Cells % 0.1 % Activated Partial Thromboplast Time 76.5 21.0-31.0 SECONDS Partial Thromboplastin Ratio 2.9 Sodium Level 136 136-145 mmol/L Potassium Level 4.8 3.5-5.1 mmol/L Chloride Level 104 98-107 mmol/L Carbon Dioxide Level 23 21-32 mmol/L Anion Gap 9.0 3-11 mmol/L Blood Urea Nitrogen 73 7-18 mg/dl Creatinine 2.21 0.60-1.20 mg/dl Est Creatinine Clear Calc Drug Dose 17.7 ml/min Estimated GFR () 23.0 Estimated GFR (Non- 19.8 BUN/Creatinine Ratio 32.8 10-20 Random Glucose 131 70-99 mg/dl Calcium Level 9.0 8.5-10.1 mg/dl Magnesium Level 2.5 1.8-2.4 mg/dl Total Bilirubin 1.1 0.2-1 mg/dl Aspartate Amino Transf (AST/SGOT) 135 15-37 U/L Alanine Aminotransferase (ALT/SGPT) 46 12-78 U/L Alkaline Phosphatase 105 45-117 U/L Total Protein 7.9 6.4-8.2 gm/dl Albumin 3.0 3.4-5.0 gm/dl Globulin 4.9 2.5-4.0 gm/dl Albumin/Globulin Ratio 0.6 0.9-2
--- NOTE | 2016-12-21 17:28 | Discharge Summary ---
Discharge Summary Date of Service Dec 21, 2016. Discharge Summary Admission Date: Dec 16, 2016 at 16:44 Discharge Date: Dec 21, 2016 Discharge Disposition: Home with services (home hospice) Principal Diagnosis: ACUTE ON CHRONIC SYSTOLIC CHF ARF STEMI/NSTEMI Secondary Diagnoses/Problems: 1. Severe cardiomyopathy, EF approximately 20%. 2. Severe mitral regurgitation. 3. Severe vascular dementia. 4. Chronic kidney disease. Creatinine ranging between 1.5 and 2.2. 5. Chronic left bundle branch block. Procedures: CXR: 1. Cardiomegaly with evidence of congestive failure and interstitial edema. 2. There are layering pleural effusions with bibasilar consolidation. This likely represents atelectasis. Correlate clinically for evidence of superimposed pneumonia. Consultations: CARDIOLOGY PALLIATIVE CARE Medication Reconciliation New Medications: Furosemide (Lasix) 80 Mg Tab 80 MG PO DAILY for 30 Days, #30 TAB 2 Refills Nitroglycerin (Nitrostat) 0.4 Mg/1 Tab Subl 1 TAB SL DIRECTED PRN for Chest Pain, #30 1 Refill nitrostat 1tab sublingual prn chest pain q 5minutes x 3 Oxycodone Oral Soln (Roxicodone Oral Soln) 5 Mg/5 Ml Soln 5 MG PO Q1H PRN for Pain for 15 Days Potassium Chloride (Klor-Con M20) 20 Meq Tabcr 20 MEQ PO DAILY, #30 2 Refills Aspirin (Aspirin EC Low Dose) 81 Mg Ectab 81 MG PO QAM, #30 2 Refills Metoprolol Succinate (Metoprolol Succinate ER) 25 Mg Tabcr 12.5 MG PO QAM, #30 1 Refill Continued Medications: Dorzolamide Hcl-Timolol Maleat (Cosopt Oph) 1 Margaux Margaux 1 DROPS OPB BID, #10 ML 3 Refills Latanoprost (Xalatan 0.005% Oph Margaux) 0.005 % Margaux 1 DROPS OPB HS, #2.5 ML 3 Refills Discontinued Medications: Atenolol (Tenormin) 50 Mg Tab 25 MG PO DAILY, TAB Enalapril (Vasotec) 10 Mg Tab 20 MG PO DAILY, TAB Furosemide (Lasix) 40 Mg Tab 40 MG PO DAILY, TAB Admission Information HPI (per Admitting provider): This is a 86 year old F who follows with a primary care doctor in [place] named Dr. Alexander and on home medications of Lasix 40 mg daily, atenolol 25 mg daily (1/2 tablet of 50 mg) daily and enalapril 20 mg daily for blood pressure , and eye drops of dorzolamide-timolol and latanoprost who as per her family members at bedside ( and 3 sons) that patient has been having shortness of breath since 12/14/16 and for which patient presents to the ER on 12/16/16. On evaluation by the ED, patient had elevated BNP>[id number] and CXR findings of pulmonary congestion. The ED physician ordered 40 mg of Lasix IV. Patient has EKG 84 bpm with left axis deviation and left bundle branch block in sinus rhythm with PVCs On exam by hospitalist physician, patient on nasal cannula but does not feel subjective shortness of breath. Patient cooperative on exam. Denies chest pain or palpitations or fevers at home. Denies smoking history or alcohol or recreational drugs or allergies. Physical Exam (per Admitting): General Appearance: no apparent distress Head: normocephalic, atraumatic Eyes: normal inspection, PERRL, EOMI, sclerae normal ENT: normal ENT inspection, hearing grossly normal, TMs normal, pharynx normal Neck: no JVD, trachea midline Respiratory/Chest: chest non-tender, + pertinent finding (some tachypnea but breathing is not labored on nasal cannula) Cardiovascular: regular rate, rhythm, no edema, no JVD Abdomen/GI: normal bowel sounds, non tender, soft Back: normal inspection, no muscle spasm Extremities/Musculoskelatal: normal inspection, no calf tenderness, no pedal edema Neurologic/Psych: no motor/sensory deficits, alert, normal mood/affect Skin: normal color, warm/dry Hospital Course This is a 86 year old F presents with sob and chf exacerbation Acute on chronic systolic CHF Echo on 12/17/16 The left ventricle is moderately dilated. There is severe concentric left ventricular hypertrophy. Septal motion is consistent with conduction abnormality. There is severe global hypokinesis of the left ventricle. There is inferior wall akinesis. Ejection Fraction = <15%. The left atrium is mildly dilated. There is moderate to severe mitral regurgitation. On IV lasix 80mg bid\\ cardiology on board and appreciate inputs palliative care consulted and appreciate inpuits to continue iv Lasix today and d/c on po lasix tomorrow discharging on lasix 80mg daily and kcl 20meg daily f/u labs d/c home with hospice care acute on chronic renal failure stage 3 cr 2.2 today f/u labs. STEMI? NSTEMI patient asymptomatic ekg shows LBBB which is old started on iv heparin as per cardiology troponin peaked to 28 stopped iv heparin patient asymptomatic plan for home hospice in am continue home eyedrops of dorzolamide-timolol and latanoprost discharged home with hospice care Total time spent on discharge = 40MINUTES This includes examination of the patient, discharge planning, medication reconciliation, and communication with other providers. Discharge Instructions Discharge Instructions Date of Service Dec 21, 2016. Admission Reason for Admission: CHF Discharge Discharge Diagnosis / Problem: acute chf, [place], ARF Discharge Goals Goal(s): Decrease discomfort, Improve function Activity Recommendations Activity Limitations: resume your previous activity (as tolerated) . Instructions / Follow-Up Instructions / Follow-Up FOLLOWUP WITH FAMILY DOCTOR IN ONE WEEK OR NEEDED LAB: BMP WITH MG LEVELS IN 5-7 DAYS AND FOLLOW RESULTS WITH FAMILY DOCTOR STARTED ON NEW DOSE LASIX AND POTASSIUM SUPPLEMENTS Call your Primary Care doctor if any of the following symptoms or problems start or get worse: * Shortness of breath or difficulty breathing * Wake up at night short of breath * Chest pain * Cough * Swelling of your hands, feet, or legs * More fatigued or tired with your normal activity * Palpitations - sudden fast heart beats WEIGHT * Weigh yourself every morning after using the bathroom. * Use the same scale. * Wear the same amount of clothing. * Write your weight down on a chart. * Call your Primary Care doctor if you gain more than 2-3 pounds in 1-2 days. MEDICATIONS * Use this discharge instruction sheet for medication instructions. * Take your medications at the time your doctor ordered. * Do not skip a dose of your medicines. * If you miss a dose of medicine, take it as soon as possible, but DO NOT DOUBLE A DOSE. * Read your medicine information when you get home. * Know all of the side effects of your medicine. If in doubt, ask your pharmacist * Call your Primary Care doctor's office if you have any side effects. * Be sure all of your doctors know what medicine and herbs you take (including cold, flu, and herbal medicine). Take the following with you to your follow-up doctor appointments: * Weight Chart * Medication List * List of questions Do not drink excessive alcohol, beer or wine. Current Hospital Diet Patient's current hospital diet: AHA Diet (Heart Healthy) Discharge Diet Recommended Diet: AHA Diet (Heart Healthy) Pending Studies Studies pending at discharge: no Laboratory Results Lipid Panel Test 12/17/16 03:47 Range/Units Triglycerides Level 172 H 0-150 mg/dl Cholesterol Level 157 0-200 mg/dl HDL Cholesterol 36 mg/dl Cholesterol/HDL Ratio 4.4 LDL Cholesterol, Calculated 87 mg/dl Medical Emergencies . Who to Call and When: Call 911 or go to the Emergency Room if: * If at any time you feel your situation is an emergency * You have tightness or pain in your chest that does not go away with rest or Nitroglycerin * You are very short of breath even with rest . Non-Emergent Contact Non-Emergency issues call your: Primary Care Provider . . "Provider Documentation" section prepared by [employer]. . VTE Core Measure Inpt VTE Proph given/why not?: Unfractionated heparin SQ
== END 2016-12-21 17:35 | disposition hospice, home (50) | DRG 281 ==
LOC: C.EDB 14:18 → C.MED 16:44 → ENRESERV 17:01
PROVIDERS: ADMIT Hospitalist; ATTEND Internal Medicine
DX: I50.23 Acute on chronic systolic (congestive) heart failure (principal); I21.9 Acute myocardial infarction, unspecified; N17.9 Acute kidney failure, unspecified; I42.9 Cardiomyopathy, unspecified; Z51.5 Encounter for palliative care; I34.0 Nonrheumatic mitral (valve) insufficiency; F01.50 Vascular dementia, unspecified severity, without behavioral disturbance, psychotic disturbance, mood disturbance, and anxiety; I44.7 Left bundle-branch block, unspecified; N18.3 Chronic kidney disease, stage 3 (moderate); G30.9 Alzheimer's disease, unspecified; F02.80 Dementia in other diseases classified elsewhere, unspecified severity, without behavioral disturbance, psychotic disturbance, mood disturbance, and anxiety; Z51.81 Encounter for therapeutic drug level monitoring; Z79.899 Other long term (current) drug therapy; Z66 Do not resuscitate